=== PATIENT | male | born 1960 | race Caucasian/White ===

== ENCOUNTER 2020-01-06 10:16 | Outpatient (REF) | payer BC, SELFPAY ==
[2020-01-06 11:45] LABS: Prostate Specific Antigen 0.26 ng/mL (<0.05-4.0)
== END 2020-01-06 10:17 | disposition home or self-care (01) ==
LOC: HO.LAB 10:16
PROVIDERS: PCP Internal Medicine; Visit Provider Urology
DX: C61 Malignant neoplasm of prostate (principal)
CPT/HCPCS: 84153

== ENCOUNTER 2020-12-23 10:29 | Outpatient (REF) | payer BC, SELFPAY ==
[2020-12-23 11:51] LABS: PSA,Total (Free>4and<10) 0.27 ng/mL (0.00-4.00)
== END 2020-12-23 10:30 | disposition home or self-care (01) ==
LOC: HO.LAB 10:29
PROVIDERS: PCP Internal Medicine; Visit Provider Urology
DX: Z12.5 Encounter for screening for malignant neoplasm of prostate (principal); C61 Malignant neoplasm of prostate
CPT/HCPCS: 36415; 84153

== ENCOUNTER → 2021-01-01 15:12 | Outpatient (BNVA) | payer BC, SELFPAY | PROVIDERS: Visit Provider Urology ==

== ENCOUNTER 2021-06-30 08:32 | Outpatient (REF) | payer BC, SELFPAY | END 2021-06-30 08:33 | disposition home or self-care (01) | LOC: HO.LAB 08:32 | PROVIDERS: PCP Internal Medicine; Visit Provider Urology | DX: Z12.5 Encounter for screening for malignant neoplasm of prostate (principal); C61 Malignant neoplasm of prostate | CPT/HCPCS: 36415; 84153 ==

== ENCOUNTER → 2021-07-09 15:46 | Outpatient (BNVA) | payer BC, SELFPAY | PROVIDERS: PCP Internal Medicine; Visit Provider Urology | DX: Z13.89 Encounter for screening for other disorder (principal) ==

== ENCOUNTER 2022-05-02 08:55 | Outpatient (REF) | payer BC, SELFPAY ==
[2022-05-02 09:11] LABS: MANUAL DIFF FLAG NO
[2022-05-02 09:25] LABS: Basophils Absolute Auto 0.1 X10*3/uL (0.0-0.2); Basophils Percent Auto 0.9 % (0-2); Eosinophils Absolute Auto 0.3 X10*3/uL (0.0-0.4); Hematocrit 45.4 % (42.0-52.0); Imm Gran Abs Auto 0.04 X10*3/uL (0.00-0.03); Imm Gran Pct Auto 0.5 % (0.0-0.4); Lymphocytes Absolute Auto 1.5 X10*3/uL (1.2-4.9); Lymphocytes Percent Auto 18.8 % (20-40); Mean Corpuscular Hemoglobin 30.3 pg (27.0-33.0); Mean Corpuscular Volume 91.7 fL (80.0-98.0); Mean Platelet Volume 10.5 fL (9.4-12.4); Monocytes Absolute Auto 0.7 X10*3/uL (0.1-1.2); Monocytes Percent Auto 8.5 % (2-11); Neutrophils Absolute Auto 5.2 x10*3/uL (2.0-8.3); Neutrophils Percent Auto 67.3 % (45-73); Platelet Count 276 X10*3/uL (160-400); Red Blood Count 4.95 X10*6/uL (4.60-5.80); Red Cell Distribution Width 12.1 % (11.0-16.0); White Blood Count 7.7 X10*3/uL (4.8-10.8)
[2022-05-02 09:49] LABS: Appearance Urine Clear; Color Urine Yellow; Glucose Urine UA Negative (Negative); Leukocyte Esterase Urine Trace (Negative); Nitrite Urine Negative (Negative); PH 5.5 (5.0-9.0); UMIC TRIGGER UA YES; Urine Blood Negative (Negative); Urine Ketones Negative (Negative); Urine Protein Negative (Neg-Trace)
[2022-05-02 09:56] LABS: Alanine Aminotransferase 15 U/L (0-40); Albumin Level 4.1 g/dL (3.5-5.0); Alkaline Phosphatase 74 U/L (39-117); Anion Gap 12 (12-20); Aspartate Amino Transferase 13 U/L (5-37); Bilirubin Total 0.6 mg/dL (0.0-1.0); Blood Urea Nitrogen 22 mg/dL (9-16); Carbon Dioxide 24 mmol/L (22-29); Chloride 110 mmol/L (96-108); Cholesterol 196 mg/dL; Estimated Glomerular Filt Rate > 60; Glucose Fasting 102 mg/dL (60-99); HDL Cholesterol 54 mg/dL; LDL Cholesterol Calculated 127 mg/dl; Potassium 4.4 mmol/L (3.3-5.1); Sodium 142 mmol/L (135-145); Total Protein 6.6 g/dL (6.5-8.0); Triglycerides 77 mg/dL
[2022-05-02 09:57] LABS: Bacteria Urine None Seen (None Seen); Hyaline Casts Urine 0-2 /LPF (0-2); RBC Urine 0-2 /HPF (0-2); Squamous Epithelial Cell Urine 0-2 /HPF (0-2); WBC Urine 0-5 /HPF (0-5)
== END 2022-05-02 08:56 | disposition home or self-care (01) ==
LOC: HO.LAB 08:55
PROVIDERS: PCP Internal Medicine; Visit Provider Internal Medicine
DX: Z00.00 Encounter for general adult medical examination without abnormal findings (principal)
CPT/HCPCS: 36415; 80053; 80061; 81001; 85025

== ENCOUNTER 2022-05-14 08:01 | Outpatient (REF) | payer BC, SELFPAY ==
--- NOTE | ~2022-05-14 | US_ITS ---
EXAMINATION: US ABDOMEN COMPLETE CLINICAL INFORMATION: Right upper quadrant pain. COMPARISON: Ultrasound abdomen complete 10/16/2014. TECHNIQUE: Real-time imaging of the abdominal viscera. Technically limited study secondary to bowel gas and body habitus. FINDINGS: PANCREAS: The pancreas is obscured by overlying gas. ABDOMINAL AORTA: The abdominal aorta is normal course and caliber. INFERIOR VENA CAVA: IVC is not visualized. LIVER: The liver is normal in size. The liver contour is normal. There is increased liver echogenicity. No focal hepatic lesion. There is no intrahepatic biliary duct dilatation seen. GALLBLADDER: Normal. The gallbladder is physiologically distended without evidence of stones, sludge, polyps, wall thickening or pericholecystic fluid. COMMON BILE DUCT: Normal in caliber measuring 0.4 cm in diameter. RIGHT KIDNEY: There is an anechoic cyst midpole measuring 0.6 x 0.7 x 0.7 cm. There is no hydronephrosis or renal calculi. The kidney measures 10.1 cm in maximum dimension. LEFT KIDNEY: There is an anechoic cyst upper pole measuring 2.5 x 2.1 x 2.2 cm. No hydronephrosis or renal calculi. The kidney measures 9.4 cm in maximum dimension. SPLEEN: Normal. The spleen measures 9.8 cm in maximum dimension. FREE FLUID: None. US/US abdomen complete IMPRESSION: Bilateral renal cysts. Mild hepatic steatosis with no focal lesion seen.
== END 2022-05-14 08:02 | disposition home or self-care (01) ==
LOC: HO.US 08:01
PROVIDERS: PCP Internal Medicine; Visit Provider Internal Medicine
DX: R10.11 Right upper quadrant pain (principal)
CPT/HCPCS: 76700

== ENCOUNTER 2022-06-03 09:07 | Day surgery (SDC) | payer BC, SELFPAY ==
--- NOTE | 2022-06-02 14:38 | HO.ANESPROP2 ---
Documented by User: Yeni Brown NP 06/02/22 14:38 HPI - Anesthesia Eval Consult details Narrative: 62yo M for Colonoscopy [facility] Active Problems Active Problems: All Active Problems (Updated 01/01/21 @ 17:43 by Dieudonne Sandra MD) Malignant neoplasm of prostate (Acute) Past Medical History Medical History Asthma Elevated blood pressure reading Erectile dysfunction following radiation therapy Malignant neoplasm of prostate Prostate cancer Surgical History Surgical History History of surgery Social History Social History Patient Tobacco Use Status: Former Tobacco user Quit Date: 2014 Use of substances other than those prescribed or required for medical reasons: No Are you DNR?: No Advance Directives: No Advance Directives Information Provided: Yes Meds Allergies Allergy/AdvReac Type Severity Reaction Status Date / Time No Known Allergies Allergy Verified 07/09/21 15:46 [No Known Allergies*] Home Medications Medication Instructions Recorded Confirmed Last Taken Type fluticasone 500 mcg-salmeterol 50 1 ea PO BID 07/09/21 Unknown History mcg/dose blistr powdr for inhalation (Advair Diskus) Exam Exam Date and Time: June 02, 2022 1438 Pertinent Lab Results Pertinent Lab Results: Laboratory Tests 05/02/22 05/02/22 09:10 09:10 WBC 7.7 Hgb 15.0 Hct 45.4 Plt Count 276 Sodium 142 Potassium 4.4 Chloride 110 H Carbon Dioxide 24 BUN 22 H Creatinine 0.88 Assessment and Plan Assessment Anesthesia Assessment: Chart Reviewed Documented by User: Rosa Isela Cotto MD 06/03/22 11:17 [facility] Past Medical History Medical History Asthma Elevated blood pressure reading Erectile dysfunction following radiation therapy Malignant neoplasm of prostate Prostate cancer Family History Family history of problems with anesthesia: No Surgical History Surgical History History of surgery History of Problems with Anesthesia: No Social History Social History Patient Tobacco Use Status: Former Tobacco user Quit Date: 2014 Use of substances other than those prescribed or required for medical reasons: No Are you DNR?: No Advance Directives: No Advance Directives Information Provided: Yes Meds Allergies Allergy/AdvReac Type Severity Reaction Status Date / Time No Known Allergies Allergy Verified 07/09/21 15:46 [No Known Allergies*] Home Medications Medication Instructions Recorded Confirmed Last Taken Type fluticasone 500 mcg-salmeterol 50 1 ea PO BID 07/09/21 Unknown History mcg/dose blistr powdr for inhalation (Advair Diskus) Exam Airway Mallampati Class: II TM Dist: >3cm Neck ROM: Full Heart: rr Lungs: cta Assessment and Plan Final Anesthetic Review Family History of Problems with Anesthesia: No History of Problems with Anesthesia: No NPO: Yes ASA Class: II Final Preanesthetic Review: No Changes in Pt Med Stat, Meds/Allgs Chart Reviewed, Consent Obtained/Reviewed and Anes Risks/Benef Reviewed Patient Risk: Low Procedure Risk: Low Anesthetic Plan Anesthetic Plan: MAC: Disposition: Standard PACU
[2022-06-03 10:43] VITALS: BP 171/96; PULSE 96; RESP 20; TEMP 36.7; O2SAT 97; BMI 29.1
[2022-06-03] MEDS: Lactated Ringers 1,000 ML 100 ML IVCONT (10:54)
[2022-06-03 11:53] VITALS: BP 131/85; PULSE 89; RESP 16; TEMP 36.3; O2SAT 98
--- NOTE | 2022-06-03 11:57 | PM.OP ---
Brief Operative Note Date of Service: 06/03/22 Pre-op diagnosis: Screening Post-op diagnosis: other (Polyps) Procedure: Colonoscopy to the cecum with cold snare polypectomy x 3. Surgeon: Terrence Le Anesthesia: MAC Was an Aging Room Hand used for this Procedure?: No Estimated blood loss (mL): 2.0 Pathology: other (A. Polyp at 50cm B. Ascending colon polyp C. Rectal polyp) Condition: stable Disposition: PACU
[2022-06-03 12:09] VITALS: BP 142/97; PULSE 78; RESP 18; TEMP 36.3; O2SAT 97
--- NOTE | 2022-06-03 23:04 | OP_ITS ---
DATE OF SERVICE: 06/03/2022 SURGEON: Terrence Le MD PREOPERATIVE DIAGNOSIS: POSTOPERATIVE DIAGNOSIS: PROCEDURE PERFORMED: Colonoscopy to the cecum and terminal ileum with cold snare polypectomy x 3. ESTIMATED BLOOD LOSS: COMPLICATIONS: ANESTHESIA: Monitored anesthesia care. The patient was placed in the left lateral decubitus position. The digital rectal exam revealed no abnormalities. The Olympus video pediatric colonoscope was entered into the rectum and advanced easily to the cecum. Once in the cecum, I did identify a normal-appearing cecal pouch with appendiceal orifice and a normal-appearing ileocecal valve. The terminal ileum was cannulated and appeared normal. The scope was withdrawn back in the colon. The entire cecum and ileocecal valve appeared normal. The scope was slowly withdrawn assessing all mucosal surfaces carefully. Preparation was excellent. In the proximal ascending colon was an approximately a 5 mm or 6 mm polyp, which was removed by cold snare polypectomy and recovered by suction. The polypectomy site appeared clean, without any sign of residual polyp nor significant bleeding. A 50 cm was an approximately 5 mm or 6 mm flat polyp, which was removed by cold snare polypectomy and recovered by suction. The polypectomy site appeared clean, without any sign of residual polyp nor bleeding. In the proximal rectum was an approximately 5 mm or 6 mm polyp, which was removed by cold snare polypectomy and recovered by suction. The polypectomy site appeared clean, without any sign of residual polyp nor bleeding. I did not visualize any sign of other polyps, colitis, nor angiodysplasia. There was a mild amount of sigmoid diverticulosis. In the rectum, the scope was retroflexed visualizing internal hemorrhoids, but no other pathology. The scope was straightened and withdrawn from the patient. He tolerated the procedure well and was returned to the recovery area in stable condition. ASSISTANTS: SPECIMENS: PREOPERATIVE DIAGNOSES: Colorectal cancer screening and personal history of tubular adenoma of the colon. POSTOPERATIVE DIAGNOSES: Colorectal cancer screening and personal history of tubular adenoma of the colon, colon polyps, diverticulosis, and internal hemorrhage. INDICATION: The patient presents for evaluation of colorectal cancer screening, a personal history of tubular adenoma of the colon, as well as family history of colon cancer. Full consent has been obtained from him for this, including risks of bleeding and perforation. IMPRESSION: 1. Colon polyps. 2. Diverticulosis. 3. Internal hemorrhoids. PLAN: The results of the pathology will be checked. I would recommend a repeat colonoscopy in 5 years for further screening and surveillance. He was advised not to use any aspirin and NSAIDs for 1 week. MD FRANTZ Umanzor/PEEWEE / [id number] MTDD
== END 2022-06-03 12:35 | disposition home or self-care (01) ==
PROVIDERS: PCP Internal Medicine; Visit Provider Internal Medicine
PROC: 0DJD8ZZ Inspection of Lower Intestinal Tract, Via Natural or Artificial Opening Endoscopic (ICD-10-PCS; CPT 45378; principal; 2022-06-03 10:40)
DX: Z12.11 Encounter for screening for malignant neoplasm of colon (principal); Z86.010 Personal history of colon polyps; Z80.0 Family history of malignant neoplasm of digestive organs; D12.8 Benign neoplasm of rectum; K63.5 Polyp of colon; K57.30 Diverticulosis of large intestine without perforation or abscess without bleeding; K64.8 Other hemorrhoids; J45.909 Unspecified asthma, uncomplicated; Z79.51 Long term (current) use of inhaled steroids; Z85.46 Personal history of malignant neoplasm of prostate; Z92.3 Personal history of irradiation; Z87.891 Personal history of nicotine dependence
CPT/HCPCS: 45385; 88305

== ENCOUNTER 2022-08-05 08:43 | Outpatient (REF) | payer BC, SELFPAY ==
[2022-08-05 10:16] LABS: Prostate Specific Antigen 0.29 ng/mL (<0.05-4.0)
== END 2022-08-05 08:44 | disposition home or self-care (01) ==
LOC: HO.LAB 08:43
PROVIDERS: PCP Internal Medicine; Visit Provider Urology
DX: N40.1 Benign prostatic hyperplasia with lower urinary tract symptoms (principal); N13.8 Other obstructive and reflux uropathy; C61 Malignant neoplasm of prostate; Z12.5 Encounter for screening for malignant neoplasm of prostate
CPT/HCPCS: 36415; 84153

== ENCOUNTER → 2022-08-19 15:47 | Outpatient (BNVA) | payer BC, SELFPAY | PROVIDERS: PCP Internal Medicine; Visit Provider Urology ==

== ENCOUNTER 2023-01-06 15:42 | Outpatient (AMB) | payer BC, SELFPAY ==
--- NOTE | 2023-01-06 15:57 | A.OFFVIS_ITS ---
Intake Intake Visit Reasons: 3m meds Intake Note: Patient is present for Telephone Follow up Allergies No Known Allergies [No Known Allergies*] Allergy (Verified 07/09/21 15:46) Medication List - Last Reconciled 01/06/23 by Dieudonne Sandra MD fluticasone propion-salmeterol 500-50 mcg/dose (Advair Diskus) 1 ea PO BID tadalafil 10 mg PO DAILY 90 days vitamin E (dl, acetate) 450 mg PO DAILY 90 days HPI HPI Comments History of Present Illness Details Jose Carlos is a pleasant male. He is a patient of Dr. Deleon. He is seen for the following urologic condition - prostate cancer - erectile dysfunction Telemedicine Evaluation 15 min Consultation [employer] [place] Video attempted Past response to daily 5 mg tadalafil Increase to 10 mg Stable urinary parameters PSA stable Prostate Cancer 2015 external beam radiation Prostate cancer diagnosed by Dr. Marquez Intermediate risk prostate cancer Initial therapy short-term GnRH with external beam radiation Completed with [facility] Radiology PSA 06/01 0.26, 01/01 0.3, 01/02 0.27, 07/04 0.3, 07/05 0.3 Yearly surveillance [facility] Medical History Malignant neoplasm of prostate Asthma Erectile dysfunction following radiation therapy Elevated blood pressure reading Prostate cancer Surgical History History of surgery Social History Patient Tobacco Use Status: Former Tobacco user Quit Date: 2014 Review of Systems Const All systems reviewed & are unremarkable except as noted in HPI and below Reports no additional complaints Resp Reports no additional complaints GI Reports no additional complaints Reports as per HPI Musc Reports no additional complaints Physical Exam Telemedicine evaluation Appropriate responses Regular breathing rate and rhythm HEENT Head: Yes normal to inspection Ears: hearing grossly normal bilaterally Eyes General: appearance normal, both eyes and all related structures Neck Neck: Yes normal visual inspection Chest Chest palpation & inspection: normal inspection of the chest Resp Effort & Inspection: normal respiratory effort and able to speak in complete sentences Assessment & Plan Assessment & Plan (1) Erectile dysfunction: Code(s): N52.9 - Male erectile dysfunction, unspecified Plan Increase daily tadalafil Medications: Changed From tadalafil 5 mg PO DAILY 90 days 90 tabs 0RF sexual activity R39.15 - Urgency of urination To tadalafil 10 mg PO DAILY 90 tabs 0RF sexual activity 90 days R39.15 - Urgency of urination Patient Instructions: Imaging studies, laboratory and physical exam results were discussed and reviewed in detail. No major barriers to patient understanding were identified. An opportunity to ask questions regarding the treatment plan was provided. All questions were answered. The patient expressed understanding and agreement with the above treatment plan. The patient is aware they should contact our office by phone for worsening of their current condition or the appearance of new urologic symptoms. Compliance is encouraged with any medications and followup testing that is ordered. It is a privilege to participate in the urologic care of your patient. If you have any questions or concerns regarding treatment for the above conditions, or other urologic issues, please do not hesitate to contact me. The office telephone contact is [phone]. This note is constructed using voice recognition software. While every effort has been made to ensure accuracy chocolate production machine operator errors may have been included. Yours sincerely, Dr Dieudonne Sandra MD, [facility] - Urology Providers of Expert, Compassionate Care for the Genitourinary System Telehealth Telehealth Location of provider rendering services: practice address Location of patient: address on file Patient Identification confirmed using: Name, : Yes Telehealth method: video Patient verbally consented to treatment: Yes Patient verbally consented to billing insurance company: Yes Patient informed of any privacy concerns related to visit: Yes Coding Level of Care Code Tele Est Pt Level 3 (34804) Diagnoses Erectile dysfunction N52.9
== END 2023-01-06 16:00 | disposition home or self-care (01) ==
LOC: HO.HUSH 15:42
PROVIDERS: PCP Internal Medicine; Visit Provider Urology
DX: N52.9 Male erectile dysfunction, unspecified (principal)
CPT/HCPCS: 99213

== ENCOUNTER → 2023-01-06 15:42 | Outpatient (BNVA) | payer BC, SELFPAY | PROVIDERS: PCP Internal Medicine; Visit Provider Urology ==

== ENCOUNTER 2023-03-23 15:51 | Outpatient (AMB) | payer BC, SELFPAY ==
--- NOTE | 2023-03-23 15:52 | A.OFFVIS_ITS ---
Intake Intake Visit Reasons: 2m follow up Intake Note: Patient is Present for Follow Up Urology Medication: Tadalafil Antibiotic Allergies: None Blood Thinners: None Allergies No Known Allergies [No Known Allergies*] Allergy (Verified 07/09/21 15:46) HPI HPI Comments History of Present Illness Details Jose Carlos is a pleasant male. He is a patient of Dr. Deleon. He is seen for the following urologic condition - prostate cancer - erectile dysfunction Follow-up on tadalafil 10 mg daily Minimal benefit with erectile dysfunction Has had stabilization of bladder Discussed other ED treatments including vacuum pump, injectable therapy, penile prosthetic He will consider Continue 5 mg tadalafil for bladder stability 6 month follow-up PSA Prostate Cancer 2015 external beam radiation Prostate cancer diagnosed by Dr. Marquez Intermediate risk prostate cancer Initial therapy short-term GnRH with external beam radiation Completed with [facility] Radiology PSA 06/01 0.26, 01/01 0.3, 01/02 0.27, 07/04 0.3, 07/05 0.3 Yearly surveillance [facility] Medical History Malignant neoplasm of prostate Asthma Erectile dysfunction following radiation therapy Elevated blood pressure reading Prostate cancer Surgical History History of surgery Social History Patient Tobacco Use Status: Former Tobacco user Quit Date: 2014 Assessment & Plan Assessment & Plan (1) Erectile dysfunction: Code(s): N52.9 - Male erectile dysfunction, unspecified (2) Urinary urgency: Code(s): R39.15 - Urgency of urination Plan Six month Orders: Orders Prostate Specific Antigen 6 Months C61 - Malignant neoplasm of prostate Medications: Changed From tadalafil 10 mg PO DAILY 90 days 90 tabs 0RF sexual activity R39.15 - Urgency of urination To tadalafil 5 mg PO DAILY 90 tabs 1RF Bladder Urge 90 days R39.15 - Urgency of urination Patient Instructions: Imaging studies, laboratory and physical exam results were discussed and reviewed in detail. No major barriers to patient understanding were identified. An opportunity to ask questions regarding the treatment plan was provided. All questions were answered. The patient expressed understanding and agreement with the above treatment plan. The patient is aware they should contact our office by phone for worsening of their current condition or the appearance of new urologic symptoms. Compliance is encouraged with any medications and followup testing that is ordered. It is a privilege to participate in the urologic care of your patient. If you have any questions or concerns regarding treatment for the above conditions, or other urologic issues, please do not hesitate to contact me. The office telephone contact is [phone]. This note is constructed using voice recognition software. While every effort has been made to ensure accuracy drug clerk errors may have been included. Yours sincerely, Dr Dieudonne Sandra MD, [facility] - Urology Providers of Expert, Compassionate Care for the Genitourinary System Coding Level of Care Code Est Pt Level 4 (64892) Diagnoses Erectile dysfunction N52.9 Urinary urgency R39.15
== END 2023-03-23 16:12 | disposition home or self-care (01) ==
PROVIDERS: PCP Internal Medicine; Visit Provider Urology
DX: N52.9 Male erectile dysfunction, unspecified (principal); R39.15 Urgency of urination
CPT/HCPCS: 99213

== ENCOUNTER → 2023-03-23 15:51 | Outpatient (BNVA) | payer BC, SELFPAY | PROVIDERS: PCP Internal Medicine; Visit Provider Urology ==

== ENCOUNTER 2024-02-17 11:38 | Emergency (ER) | payer BC, SELFPAY ==
--- NOTE | ~2024-02-17 | CT_ITS ---
EXAMINATION: CT CHEST, ABDOMEN AND PELVIS WITHOUT CONTRAST CLINICAL INFORMATION: Bilateral rib pain. Upper back pain. Abdominal pain. Constipation. Fall from ladder. COMPARISON: Most recent abdominal ultrasound dated 05/14/2022. TECHNIQUE: Contiguous axial thin section helical images of the chest, abdomen and pelvis were performed without IV contrast. The data set was reformatted in the coronal and sagittal planes and reviewed on an independent workstation. This CT examination was performed using dose optimization techniques as appropriate, variously including the following: *Automated exposure control *Adjustment of mA and/or kV according to patient size (this includes techniques or standardized protocols for targeted exams where dose is matched to indication/reason for exam; i.e. extremities or head) *Use of iterative reconstruction technique DLP: 2048 mGy-cm. FINDINGS: LUNGS: Bibasilar dependent consolidations, left greater than right. Findings could represent atelectasis versus pneumonia. No pulmonary nodule or mass. The central airways are patent. PLEURA: Trace left-sided pleural effusion. No pneumothorax. MEDIASTINUM: No cardiomegaly. No significant pericardial effusion. No thoracic aortic dilatation. No significant mediastinal or hilar lymphadenopathy. CORONARY ARTERY CALCIFICATION: None present. CHEST WALL/AXILLA: No lymphadenopathy. THYROID: Right thyroid nodule measuring up to 2.7 cm. Nonemergent follow-up thyroid ultrasound is recommended. LIVER, GALLBLADDER, AND BILIARY TREE: Normal size, shape, and attenuation. No focal hepatic lesion. No intra or extrahepatic biliary ductal dilatation. The gallbladder is unremarkable with no evidence of radiopaque gallstones, gallbladder wall thickening, or obvious pericholecystic inflammatory changes. PANCREAS: Unremarkable. SPLEEN: Unremarkable. ADRENAL GLANDS: Unremarkable. KIDNEYS AND URETERS: Normal size, shape, and attenuation. No hydronephrosis, hydroureter, or calculi. No perinephric stranding. BLADDER: Partially distended and unremarkable. A portion of the urinary bladder is herniated into the right inguinal hernia without significant stranding or dilatation. GASTROINTESTINAL TRACT: No bowel wall thickening or inflammatory change. No small or large bowel obstruction. The appendix is unremarkable. PERITONEAL CAVITY: No intra-abdominal free air, free fluid, mass, or organized fluid collection. ABDOMINAL WALL: Right inguinal hernia containing fat and a portion of the urinary bladder. No associated inflammatory or ischemic change. LYMPH NODES: No significant lymphadenopathy. VASCULAR: No abdominal aortic dilatation. Scattered atherosclerotic calcifications. The IVC is unremarkable. PELVIC VISCERA: The prostate and seminal vesicles are unremarkable. OSSEOUS STRUCTURES: Nondisplaced fractures through the anterolateral aspect of the right 6th through 9th ribs. Minimally displaced fractures through the anterolateral aspect of the left 6th and 7th ribs. Displaced fractures of the posterior aspect of the left 8th, 9th, 10th and 11th ribs with minimally displaced anterolateral fractures of the left 8th and 9th ribs. CT/CT abdomen pelvis wo IV con IMPRESSION: 1. Bibasilar dependent consolidations, left greater than right. Findings could represent atelectasis versus pneumonia. Trace left-sided pleural effusion. No pneumothorax. 2. Multiple bilateral rib fractures, most prominent within the left 8th through 11th ribs. 3. No intra-abdominal mass, lymphadenopathy, or ascites. 4. Right thyroid nodule measuring up to 2.7 cm. Nonemergent follow-up thyroid ultrasound is recommended. 5. Right inguinal hernia containing fat and a portion of the urinary bladder. No associated inflammatory or ischemic change. Electronically signed by: Wilfrido Glasgow MD 02/17/2024 03:42 PM [facility]
--- NOTE | ~2024-02-17 | XR_ITS ---
EXAMINATION: XR LUMBOSACRAL SPINE CLINICAL INFORMATION: b/l low back pain s/p fall COMPARISON: No prior. TECHNIQUE: Three views of the lumbosacral spine. FINDINGS: Normal bone mineralization. No fracture, compression deformity, or evidence of traumatic subluxation. No suspicious bone lesion. No scoliosis. Normal lordosis. Alignment is anatomic without subluxation. Severe disc degenerative change L5-S1 with associated facet degeneration. Mild changes throughout the remainder of the lumbar spine with sparing of L2-3. No discrete soft tissue abnormalities. Oval radiodensity overlying the left transverse process of L3 is of uncertain etiology but not present on the lateral projection. This may be artifact. Fiducial markers noted in the prostate gland. XR/XR lumbar spine 2-3V IMPRESSION: 1. No acute findings lumbar spine. 2. Mild degenerative spondylosis most significant L5-S1. Electronically signed by: Brown House MD 02/17/2024 02:03 PM [facility]
--- NOTE | ~2024-02-17 | XR_ITS ---
EXAMINATION: XR SACRUM AND COCCYX CLINICAL INFORMATION: fall onto tail bone COMPARISON: None available. TECHNIQUE: 2 views of the sacrum and 2 views of the coccyx were obtained. FINDINGS: The coccyx and sacrum are intact, as are the SI joints. Imaged hip joints appear normal. Degenerative disc changes L5-S1. Fiducial markers in the prostate. Soft tissues otherwise appear normal. XR/XR sacrum coccyx min 2V IMPRESSION: No acute sacrum or coccyx findings. Electronically signed by: Brown House MD 02/17/2024 02:06 PM [facility]
--- NOTE | ~2024-02-17 | CT_ITS ---
EXAMINATION: CT HEAD WITHOUT CONTRAST CLINICAL INFORMATION: fall w/ posterior head strike COMPARISON: None available. TECHNIQUE: Contiguous axial imaging was performed from the skull base to vertex without intravenous administration of contrast. This CT examination was performed using dose optimization techniques as appropriate, variously including the following: *Automated exposure control *Adjustment of mA and/or kV according to patient size (this includes techniques or standardized protocols for targeted exams where dose is matched to indication/reason for exam; i.e. extremities or head) *Use of iterative reconstruction technique DLP: 852 mGy-cm FINDINGS: Bony calvarium is intact. Skull base is intact. Traumatic deformity in the nasal bones, likely old. 50 mm low density nodule beneath the skin, right forehead. No gross soft tissue scalp contusion. No acute intracranial hemorrhage, mass effect, midline shift, hydrocephalus or herniation. Lees-white matter differentiation is normal. Posterior cranial fossa contents demonstrated no acute intracranial hemorrhage or mass effect. Sellar/suprasellar region demonstrated no gross masses. Craniocervical junction is intact and normal. Polypoid mucosal thickening, maxillary sinuses. Retention cysts versus polyp in the right nasal cavity just lateral to the middle turbinate. No air-fluid levels in the included paranasal sinuses. Tympanic cavities and mastoid air cells are aerated. Calcified plaques in the cavernous and supraclinoid segments both ICA. CT/CT head/brain wo IV con IMPRESSION: No acute fracture, bony calvarium. No acute intracranial hemorrhage. Polypoid paranasal sinus disease and retention cysts versus polyp, right nasal cavity. Recommend direct inspection. Old traumatic deformity, nasal bones. Electronically signed by: Andres Maki MD 02/17/2024 01:59 PM EST
--- NOTE | ~2024-02-17 | CT_ITS ---
EXAMINATION: CT CERVICAL SPINE WITHOUT CONTRAST CLINICAL INFORMATION: Fall from ladder. COMPARISON: None available. TECHNIQUE: Contiguous axial CT images of the cervical spine were obtained without contrast. Sagittal and coronal reformats were provided and reviewed. This CT examination was performed using dose optimization techniques as appropriate, variously including the following: *Automated exposure control *Adjustment of mA and/or kV according to patient size (this includes techniques or standardized protocols for targeted exams where dose is matched to indication/reason for exam; i.e. extremities or head) *Use of iterative reconstruction technique DLP: 2048 mGy-cm FINDINGS: Normal vertebral body alignment. No acute fracture or subluxation. No loss of vertebral body height. Loss of intervertebral disc height with degenerative endplate changes and osteophytes at C3 through C7. Mild multilevel bilateral facet arthropathy, most prominent at C7-T1. No concerning lytic or blastic osseous lesion. No abnormal soft tissue mass or fluid collection. Heterogeneous right thyroid nodule measuring up to 2.6 cm in greatest dimension. Dedicated ultrasound could help further evaluate. The lung apices are clear. Mild multilevel bilateral neural foraminal stenosis. CT/CT cervical spine wo IV con IMPRESSION: 1. No acute fracture or subluxation. 2. Multilevel degenerative disc disease and bilateral facet arthropathy with mild multilevel bilateral neural foraminal stenosis. 3. Heterogeneous right thyroid nodule measuring up to 2.6 cm. Nonemergent dedicated thyroid ultrasound could help further evaluate. Fleischner guidelines were followed. Electronically signed by: Wilfrido Glasgow MD 02/17/2024 03:33 PM [facility]
[2024-02-17 11:45] VITALS: BP 154/99; PULSE 124; RESP 18; TEMP 36.4; O2SAT 94; BMI 27.5
--- NOTE | 2024-02-17 11:45 | ED.BACK ---
HPI - Back Pain/Injury General Chief Complaint: Fall Stated Complaint: Fall 02/12 - back pain Time Seen by Provider: 02/17/24 12:21 Source: patient, RN notes reviewed and old records reviewed Mode of arrival: ambulatory History of Present Illness ED Provider: Eveline Negron PA-C HPI Narrative: 63-year-old male with a past medical history of malignant neoplasm of prostate, asthma, presenting to the ED complaining mid/low back pain s/p mechanical fall off ladder on 02/13/2024. States was coming down off ladder, was on 2nd to last step & avoid stepping on his cat tried to step on ground however himself/ladder fell backwards onto floor, admits to head strike without LOC and landed directly on back. Denies anticoagulation use. Reports constipation without BM since fall which patient has suspect secondary to pain. Has been taking ibuprofen at home without relief. Reports SOB secondary to back pain. Denies urinary incontinence/retention, dysuria/hematuria, CP, radiating back pain, numbness, tingling, weakness Related Data Home Medications ?Medication ?Instructions ?Recorded ?Confirmed fluticasone 500 mcg-salmeterol 50 1 ea PO BID 07/09/21 01/06/23 mcg/dose blistr powdr for inhalation (Advair Diskus) Previous Rx's ?Medication ?Instructions ?Recorded vitamin E (dl, acetate) 450 mg 450 mg PO DAILY 90 days #90 caps 02/26/23 (1,000 unit) capsule tadalafil 5 mg tablet 5 mg PO DAILY Bladder Urge 90 days 03/23/23 #90 tabs Allergies Allergy/AdvReac Type Severity Reaction Status Date / Time No Known Allergies Allergy Verified 02/17/24 11:49 [No Known Allergies*] Review of Systems Review of Systems: Yes all other systems are reviewed and are negative Constitutional: Constitutional: Reports as per HPI Neurologic: Denies Abnormal speech present and Denies Sensory deficit (Neuro) [facility] Past Medical History Attestation statement: The following information was validated with the patient. Source: old records reviewed Medical History Malignant neoplasm of prostate Asthma Erectile dysfunction following radiation therapy Elevated blood pressure reading Prostate cancer Surgical History History of surgery Social History Social History Alcohol intake: current Alcohol intake frequency: 0-2 drinks per day Patient Tobacco Use Status: Former Tobacco user Smoked in Last 30 Days: No Use of substances other than those prescribed or required for medical reasons: No Advance Directives: No Advance Directives Information Provided: Yes Do you have a plan to hurt others: No Plan Physical Exam Vital Signs: Vital Signs: Last Vital Signs Temp 98.4 F 02/17/24 14:47 Pulse 94 02/17/24 14:47 Resp 19 02/17/24 14:47 BP 137/81 02/17/24 14:47 Pulse Ox 92 02/17/24 14:47 O2 Del Method Room Air 02/17/24 14:47 BMI result Body Mass Index 27.5 Const: Other: Appears in pain General: cooperative, healthy appearing and no acute distress Orientation/consciousness: patient oriented x3 Limitations: no limitations HEENT: Head: Yes normal to inspection and Yes atraumatic Ears: hearing grossly normal bilaterally General nose exam: Normal external nose present Face and sinus: Yes normal facial exam Eyes: General: appearance normal, both eyes and all related structures Pupils: Equal, round and reactive pupils present EOM: EOMs intact bilaterally Neck: Neck: Yes normal visual inspection and Yes no meningeal signs Chest: Other: Bilateral lower rib posterior lateral reproducible tenderness. No ecchymosis/erythema or flail chest. No crepitus Resp: Effort & Inspection: normal respiratory effort and no respiratory distress Auscultation: clear to auscultation bilaterally Cardio: Rate: regular rate Heart sounds: S1 normal heart sound present and S2 normal heart sound present GI: Inspection: Yes normal to inspection Palpation (GI): Soft to palpation, Tenderness to palpation present (GI) (Diffusely), no guarding and not rigid : General: Yes no CVA tenderness Back/Spine/Pelvis: Other: No midline cervical/thoracic/lumbar spinous tenderness/step-off or deformity Back: no CVA tenderness Skin: Rashes: no rashes Wounds: no wounds Neuro: Other: Strength intact throughout. No saddle anesthesia. Sensation intact to light touch. Neurovascular intact distally General: patient oriented x3, tone normal, moves all extremities, no meningeal signs, no focal motor deficits and CN's II-XI intact bilaterally Cranial nerves: Yes CN's II-XII intact bilaterally and Yes Equal, round and reactive pupils present Cognition (Neuro): normal cognition Speech: No Abnormal speech present Gait exam (Neuro): Ataxic gait present Motor exam (neuro): 5/5 motor strength present throughout Sensory Exam: No Sensory deficit (Neuro) Extrem: General: Yes normal to inspection Course Course Course Narrative: This is a Rapid Medical Examination (RME) performed by Vivienne Tijerina PA-C in triage. Full HPI, ROS, assessment and treatment plan per primary provider in the Main ED. 63 yo male here for eval of b/l lower back pain since fall on 02/13/24. states he stepped off of the 2nd step of a ladder in order to avoid stepping on his cat which caused both him and the ladder to fall backwards. reports landing directly onto his lower back. admits to posterior head strike. no LOC. Not on AC. no urinary retention. has not had a BM since which is unusual for him however also reports he has had no appetitie. denies saddle anestehsias, numbness/tingling/weakness to LEs. denies neck pain. taking motrin without relief. + tachy to 120's, no chest pain. sensation intact. ambulating w/ steady gait. Plan: labs, imaging, ekg, further eval in main ED needed. 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 -1414--labs reassuring. BUN chronically elevated XR lumbar spine 2-3V IMPRESSION: 1. No acute findings lumbar spine. 2. Mild degenerative spondylosis most significant L5-S1. XR sacrum coccyx min 2V IMPRESSION: No acute sacrum or coccyx findings. CT head/brain wo IV con IMPRESSION: No acute fracture, bony calvarium. No acute intracranial hemorrhage. Polypoid paranasal sinus disease and retention cysts versus polyp, right nasal cavity. Recommend direct inspection. Old traumatic deformity, nasal bones. 1553--CT cervical spine wo IV con IMPRESSION: 1. No acute fracture or subluxation. 2. Multilevel degenerative disc disease and bilateral facet arthropathy with mild multilevel bilateral neural foraminal stenosis. 3. Heterogeneous right thyroid nodule measuring up to 2.6 cm. Nonemergent dedicated thyroid ultrasound could help further evaluate. Fleischner guidelines were followed. CT chest wo IV con/CT abdomen pelvis wo IV con IMPRESSION: 1. Bibasilar dependent consolidations, left greater than right. Findings could represent atelectasis versus pneumonia. Trace left-sided pleural effusion. No pneumothorax. 2. Multiple bilateral rib fractures, most prominent within the left 8th through 11th ribs. 3. No intra-abdominal mass, lymphadenopathy, or ascites. 4. Right thyroid nodule measuring up to 2.7 cm. Nonemergent follow-up thyroid ultrasound is recommended. 5. Right inguinal hernia containing fat and a portion of the urinary bladder. No associated inflammatory or ischemic change. > 1601--spoke with [facility] trauma transfer line. -1705--spoke with trauma, Dr. Mendoza at [facility], accepted transfer, ED to ED with trauma consult Medications Administered Discontinued Medications Generic Name Dose Route Start Last Admin Trade Name Freq PRN Reason Stop Dose Admin Cyclobenzaprine HCl 10 mg 02/17/24 12:31 02/17/24 13:13 Cyclobenzaprine Hcl 10 Mg Tablet PO 02/17/24 12:32 10 mg ONCE ONE Administration Sodium Chloride 500 mls @ 999 mls/hr 02/17/24 12:45 02/17/24 14:05 Ns IV 02/17/24 13:15 Infused .Q31M SOCRATES Infusion Morphine Sulfate 2 mg 02/17/24 12:30 02/17/24 13:12 Morphine Sulfate 2 Mg/Ml Cartridge IVPUSH 02/17/24 12:31 2 mg ONCE ONE Administration Protocol Medical Decision Making Medical Decision Making MDM Narrative: 63-year-old male with a past medical history of malignant neoplasm of prostate, asthma, presenting to the ED complaining mid/low back pain s/p mechanical fall off ladder on 02/13/2024 and constipation without BM since incident. On exam tachycardic likely from pain, no focal neuro deficits, no midline spinous tenderness throughout. Reproducible bilateral posterior lateral rib tenderness, abdomen soft with diffuse tenderness, no rebound or guarding. No saddle anesthesia. Concern for fractures vs MSK pain/strain vs intrathoracic/intra-abdominal injury. Rule out concussion vs ICH although lower suspicion. Lower concern for cauda equina/cord compression or epidural abscess. Rule out constipation vs SBO Plan: Labs, UA, x-rays, CTs, pain control, re-evaluate Low suspicion for severe sepsis Please refer to course for remaining clinical decision making, interpretation of labs/imaging results, and discussions with consultants and/or family members. Differential Diagnosis Differential Diagnoses: The differential diagnosis associated with the presentation includes As above Admission/Observation Consideration of admission/observation: Escalation of care including admission/observation considered Lab Data MDM Lab Attestation statement: I reviewed the patient's lab results. 02/17/24 13:03 02/17/24 13:03 Labs: Lab Results 02/17/24 Range/Units 13:03 WBC 10.0 (4.8-10.8) X10*3/uL RBC 5.13 (4.60-5.80) X10*6/uL Hgb 15.9 (14.0-18.0) g/dl Hct 46.7 (42.0-52.0) % MCV 91.0 (80.0-98.0) fL MCH 31.0 (27.0-33.0) pg MCHC 34.0 (31.0-36.0) g/dl RDW 11.9 (11.0-16.0) % Plt Count 316 (160-400) X10*3/uL MPV 10.6 (9.4-12.4) fL Immature Gran % (Auto) 0.5 H (0.0-0.4) % Neut % (Auto) 76.4 H (45-73) % Lymph % (Auto) 11.0 L (20-40) % Highland % (Auto) 10.0 (2-11) % Eos % (Auto) 1.3 (0-4) % Baso % (Auto) 0.8 (0-2) % Lymph # (Auto) 1.1 L (1.2-4.9) X10*3/uL Highland # (Auto) 1.0 (0.1-1.2) X10*3/uL Eos # (Auto) 0.1 (0.0-0.4) X10*3/uL Baso # (Auto) 0.1 (0.0-0.2) X10*3/uL Abs Immat Gran (auto) 0.05 H (0.00-0.03) X10*3/uL Absolute Neuts (auto) 7.6 (2.0-8.3) x10*3/uL Absolute Nucleated RBC 0.000 (0.0-0.012) X10*3/uL Nucleated RBC % (auto) 0.0 (0.0-0.2) /100WBC PT 11.9 (10.9-12.4) SEC INR 1.0 (0.9-1.1) Sodium 139 (135-145) mmol/L Potassium 4.3 (3.3-5.1) mmol/L Chloride 105 (96-108) mmol/L Carbon Dioxide 26 (22-29) mmol/L Anion Gap 12 (12-20) BUN 21 H (9-16) mg/dL Creatinine 0.92 (0.5-1.4) mg/dL Estim Creat Clear Calc 90.2 Estimated GFR > 60 Random Glucose 108 (60-115) mg/dL Calcium 9.4 (8.4-10.2) mg/dL Magnesium 2.3 (1.6-2.6) mg/dL Total Bilirubin 0.7 (0.0-1.0) mg/dL AST 22 (5-37) U/L ALT 21 (0-40) U/L Alkaline Phosphatase 86 (39-117) U/L Total Protein 7.6 (6.5-8.0) g/dL Albumin 4.1 (3.5-5.0) g/dL Lipase 24 (8-78) U/L Independent Interpretation I performed an independent interpretation of an: Plain X-Ray and CT Scan Radiology Impression Discussion of test interpretation with radiology: I have reviewed the radiologist's reading. External Record Review External record reviewed: Inpatient record, Office record, Outpatient record, Prior outpatient labs, Prior outpatient radiology, Primary care record and Outside ED record Tests considered The following testing was considered but not selected: As above Prescription Management I considered prescription management with: Pain Medication Chronic Conditions Patient?s care impacted by: Other Social Determinants Patient?s care significantly limited by Social Determinants of Health including: Other Social Determinant of Health Critical Care Time Critical Care Time Critical Care Time: Yes Total Critical Care Time: 40 Attestation: I have personally provided critical care time exclusive of time spent on separately billable procedures. Time includes review of lab data, radiology results, discussion with consultants, and monitoring for potential decompensation. Intervention performed as documented. Discharge Plan Discharge Clinical Impression: Multiple fractures of rib involving four or more ribs Patient Disposition: Still a Patient Prescriptions: No Action vitamin E (dl, acetate) 450 mg (1,000 unit) capsule 450 mg PO DAILY 90 Days Qty: 90 1RF fluticasone propion-salmeterol [Advair Diskus] 500-50 mcg/dose blister with device 1 ea PO BID tadalafil 5 mg tablet 5 mg PO DAILY 90 Days Qty: 90 1RF Print Language: Emirati
--- NOTE | 2024-02-17 11:47 | ECG_ITS ---
Test Reason : TACHY Blood Pressure : / mmHG Vent. Rate : 108 BPM Atrial Rate : 108 BPM P-R Int : 138 ms QRS Dur : 092 ms QT Int : 350 ms P-R-T Axes : 042 026 045 degrees QTc Int : 469 ms Sinus tachycardia Otherwise normal ECG When compared with ECG of 26-APR-2001 08:46, Nonspecific T wave abnormality now evident in Inferior leads Referred By: Sury Tijerina Electronically Signed By:Demar Ibarra
[2024-02-17 13:10] LABS: MANUAL DIFF FLAG NO
[2024-02-17] MEDS: 0.9 % Sodium Chloride 500 ML 999 ML IV (13:12)
[2024-02-17] MEDS: Morphine Sulfate 2 MG/ML CARTRIDGE IVPUSH ×2 (13:12→18:24)
[2024-02-17] MEDS: Cyclobenzaprine HCl 10 MG TABLET PO (13:13)
[2024-02-17 13:15] VITALS: BP 137/83; PULSE 93; RESP 20; O2SAT 94
--- NOTE | 2024-02-17 13:15 | PC.NURSE ---
pt is alert and oriented, skin appropriate for ethnicity, respirations even and unlabored, pt reports that on 02/12 was hanging lights inside his house and was on the second step of a ladder, his cat was going under his feet and he did not want to step at the cat tripped landing on his back since then having all back pain, and has not had a bowel movement since the fall, is urinating fine, no blood in the urine, no head strike, also reports poor appetite since the fall, vs stable
[2024-02-17 13:16] LABS: Basophils Absolute Auto 0.1 X10*3/uL (0.0-0.2); Basophils Percent Auto 0.8 % (0-2); Eosinophils Absolute Auto 0.1 X10*3/uL (0.0-0.4); Eosinophils Percent Auto 1.3 % (0-4); Hematocrit 46.7 % (42.0-52.0); Hemoglobin 15.9 g/dl (14.0-18.0); Imm Gran Abs Auto 0.05 X10*3/uL (0.00-0.03); Imm Gran Pct Auto 0.5 % (0.0-0.4); Lymphocytes Absolute Auto 1.1 X10*3/uL (1.2-4.9); Mean Platelet Volume 10.6 fL (9.4-12.4); Neutrophils Absolute Auto 7.6 x10*3/uL (2.0-8.3); Neutrophils Percent Auto 76.4 % (45-73); Platelet Count 316 X10*3/uL (160-400); Red Blood Count 5.13 X10*6/uL (4.60-5.80); Red Cell Distribution Width 11.9 % (11.0-16.0)
[2024-02-17 13:25] LABS: Prothrombin Time 11.9 SEC (10.9-12.4)
[2024-02-17 13:27] LABS: Alanine Aminotransferase 21 U/L (0-40); Albumin Level 4.1 g/dL (3.5-5.0); Alkaline Phosphatase 86 U/L (39-117); Anion Gap 12 (12-20); Aspartate Amino Transferase 22 U/L (5-37); Bilirubin Total 0.7 mg/dL (0.0-1.0); Blood Urea Nitrogen 21 mg/dL (9-16); Calcium 9.4 mg/dL (8.4-10.2); Carbon Dioxide 26 mmol/L (22-29); Chloride 105 mmol/L (96-108); Creatinine Clr Calc Pharmacy 90.2; Estimated Glomerular Filt Rate > 60; Glucose Random 108 mg/dL (60-115); Lipase 24 U/L (8-78); Magnesium 2.3 mg/dL (1.6-2.6); Potassium 4.3 mmol/L (3.3-5.1); Sodium 139 mmol/L (135-145); Total Protein 7.6 g/dL (6.5-8.0)
[2024-02-17 14:47] VITALS: BP 137/81; PULSE 94; RESP 19; TEMP 36.9; O2SAT 92
--- NOTE | 2024-02-17 15:26 | PC.NURSE ---
pt reports feeling better, no pain while laying still but once moves the pain jumps to 5/10
--- NOTE | 2024-02-17 18:00 | PC.NURSE ---
report given to marco antonio noel at [facility]
[2024-02-17 18:20] VITALS: BP 139/85; PULSE 86; RESP 16; TEMP 37; O2SAT 93
--- NOTE | 2024-02-17 18:20 | PC.NURSE ---
pt reports pain is getting worse again when moves pain at 10/10
[2024-02-17 19:42] VITALS: BP 139/85; PULSE 86; RESP 16; TEMP 37; O2SAT 93
--- OUTSIDE RECORDS SUMMARY | 2024-02-23 02:01 | XMS_ITS | Patient Health Record ---
Author Organization [facility] Address [address] [place] [address] Care Team Providers Care [employer] Process Worker Name Role Phone Timothy Deleon MD Primary Care Provider Marivel Crowe Unavailable [phone] Allergies No Known Allergies Reason For Referral No Information Medications Medication SIG (Take, Route, Frequency, Duration) Notes Start Date End Date Status Advair Diskus 500-50 MCG/DOSE 1 puff Inhalation Twice a day Active Social History Tobacco Use: Social History Observation Description Date Details (start date - stop date) Former Smoker NA - NA Tobacco Use/Smoking Question Answer Notes Are you a: former smoker Tobacco use other than smoking: Question Answer Notes Are you an other tobacco user? No Problems Problem Type SNOMED Code ICD Code Onset Dates Problem Status W/U Status Risk Notes Problem [id number] Plantar wart (B07.0) Active confirmed Plan Of Treatment No Information Insurance Providers Payer Name Payer Address Payer Phone Subscriber Number Group Number Insured Name Patient Relationship to Insured Coverage Start Date Coverage End Date [employer] [address] [place] [address] [id number] Jose Carlos Catherine Self - patient is the insured Medical (General) History Medical History History ICD Code asthma Surgical History Surgery Date(Month/Year)
--- OUTSIDE RECORDS SUMMARY | 2024-02-23 02:01 | XMS_ITS | Continuity of Care Document ---
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 Name Role Phone Timothy Deleon MD Primary Care Physician [place] [facility] [place]): [place] - 02/19/[address] [address] Encounter Diagnosis Rib fractures(Final) - 02/18/24 Fall(Final) - 02/18/24 Dyspnea(Final) - 02/18/24 Discharge Disposition: A-D/C Home Attending Physician: Estrella Mendoza MD Admitting Physician: Estrella Mendoza MD Referring Physician: Not on Staff, Referring MD Encounter Type: Disch IP Allergies, Adverse Reactions, Alerts No Known Medication Allergies Medications gabapentin 300 mg oral capsule 300 mg, Capsule, By Mouth, 02/19/24 9:00:00 AM EST Start Date: 02/19/24 Stop Date: 02/19/24 Status: Completed Repeat number: 1 gabapentin 300 mg oral capsule 300 mg, By Mouth, 3 times a day, # 42 capsule, Refills 0, Tot. Refills 0, Maintenance, 02/19/24 11:05:00 AM EST, Route to Pharmacy Electronically, [facility], Partial fill upon patient request if the prescription is for a schedule II opioid drug., 186, cm, 02/19/24 11:04:00 EST, Height, 97.72, kg, 02/18/24 14:21:00 EST, Dry Weight Start Date: 02/19/24 Stop Date: 03/04/24 Status: Ordered Quantity: 42.0 Unit: capsule Repeat number: 1 ibuprofen 600 mg oral tablet 600 mg, Tablet, By Mouth, 02/19/24 9:00:00 AM EST Start Date: 02/19/24 Stop Date: 02/19/24 Status: Completed Repeat number: 1 ibuprofen 600 mg oral tablet 600 mg, By Mouth, 3 times a day, for 14 days, # 42 tablet, Refills 0, Tot. Refills 0, Acute 03/04/24 11:05:00 AM EST, 02/19/24 11:05:00 AM EST, Route to Pharmacy Electronically, [facility], Partial fill upon patient request if the prescription is for a schedule II opioid drug., 186, cm, 02/19/24 11:04:00 EST, Height, 97.72, kg, 02/18/24 14:21:00 EST, Dry Weight Start Date: 02/19/24 Stop Date: 03/04/24 Status: Ordered Quantity: 42.0 Unit: tablet Repeat number: 1 oxyCODONE 5 mg oral tablet 5 mg, By Mouth, Every 4 hours, PRN, for 3 days, # 18 tablet, Refills 0, Tot. Refills 0, Acute 02/22/24 11:05:00 AM EST, Pain , Moderate, 02/19/24 11:05:00 AM EST, Route to Pharmacy Electronically, [facility], Partial fill upon patient request if the prescription is for a schedule II opioid drug., 186, cm, 02/19/24 11:04:00 EST, Height, 97.72, kg, 02/18/24 14:21:00 EST, Dry Weight Start Date: 02/19/24 Stop Date: 02/22/24 Status: Ordered Quantity: 18.0 Unit: tablet Repeat number: 1 Tylenol 325 mg oral tablet 975 mg, Tablet, By Mouth, 02/19/24 10:00:00 AM EST Start Date: 02/19/24 Stop Date: 02/19/24 Status: Completed Repeat number: 1 Tylenol 325 mg oral tablet 975 mg, By Mouth, Every 6 hours, for 14 days, # 168 tablet, Refills 0, Tot. Refills 0, Acute 03/04/24 11:05:00 AM EST, 02/19/24 11:05:00 AM EST, Route to Pharmacy Electronically, [facility], Partial fill upon patient request if the prescription is for a schedule II opioid drug., 186, cm, 02/19/24 11:04:00 EST, Height, 97.72, kg, 02/18/24 14:21:00 EST, Dry Weight Start Date: 02/19/24 Stop Date: 03/04/24 Status: Ordered Quantity: 168.0 Unit: tablet Repeat number: 1 Zeynep Inhub 500 mcg-50 mcg inhalation powder 1 inhalation, Inhalation, 2 times a day, rinse mouth and throat after use, 0 Refills, Maintenance, 02/18/24 1:34:00 PM EST, Powder, Partial fill upon patient request if the prescription is for a schedule II opioid drug. Start Date: 02/18/24 Status: Ordered Repeat number: 1 Results Radiology Reports * Exam Date Time Procedure Performing Provider Status 02/19/24 7:05 AM Chest 2 Views Frontal and Lat Jany Proctor; Auth (Verified) Notes: (Chest 2 Views Frontal and Lat) Reason For Exam: Other:;Other: RESULT: Chest 2 Views Frontal and Lat Chest 2 Views Frontal and Lat Reason: Other:; Clinical Question(s): Other:; Special Instructions: Bilateral effusions COMPARISON: 02/18/2024 FINDINGS: LINES AND TUBES: None. LUNGS AND PLEURA: Unchanged small pleural effusions and bibasilar atelectasis No pneumothorax. HEART, MEDIASTINUM AND LIMA: Heart is normal in size. Normal mediastinal and hilar contour. BONES AND SOFT TISSUES: No acute abnormality. IMPRESSION: Unchanged small pleural effusions and bibasilar atelectasis WSN: [id number] Ordering Physician: Cali Egan Dictated By: Tony Melton MD Dictated Date/Time: 02/19/24 1:24 pm Reviewed By: Tony Melton MD Signed By: Tony Melton MD Signed Date/Time: 02/19/24 1:24 pm Transcribed By: CAROLINA Transcribed Date/Time: 02/19/24 1:23 pm * Exam Date Time Procedure Performing Provider Status 02/18/24 8:36 AM Chest 2 Views Frontal and Lat Caprice Aguilera; Auth (Verified) Notes: (Chest 2 Views Frontal and Lat) Reason For Exam: Trauma;Other: RESULT: Chest 2 Views Frontal and Lat Examination: Chest performed on 02/18/2024. History: Trauma Findings: Frontal and lateral views of the chest are submitted without comparison. The cardiac and mediastinal silhouettes are within normal limits. The lungs are clear. Trace pleural effusions are present. The osseous and soft tissue structures are unremarkable. Impression: Trace pleural effusions. WSN: [id number] Ordering Physician: Cecil Lou Dictated By: Mary Schilling MD Dictated Date/Time: 02/18/24 9:16 am Reviewed By: Mary Schilling MD Signed By: Mary Schilling MD Signed Date/Time: 02/18/24 9:16 am Transcribed By: CAROLINA Transcribed Date/Time: 02/18/24 9:15 am Vital Signs Most recent to oldest [Reference Range]: 1 2 3 4 Height 186 cm (02/19/24 11:04 AM) 186 cm (02/19/24 7:39 AM) 186 cm (02/19/24 4:08 AM) Weight 97.72 kg (02/18/24 2:21 PM) Oxygen Saturation [94-100 %] 94 % (02/19/24 11:04 AM) 93 % *L* (02/19/24 7:39 AM) 96 % (02/19/24 4:08 AM) Pulse Rate [55-90 bpm] 92 bpm *H* (02/19/24 11:04 AM) 86 bpm (02/19/24 7:39 AM) 75 bpm (02/19/24 4:08 AM) Body Mass Index [18.5-24.99 kg/m2] 28.25 kg/m2 *H* (02/18/24 2:21 PM) Blood Pressure [90-138/55-84 mm Hg] 109/71mm Hg (02/19/24 11:04 AM) 141/83mm Hg *H* (02/19/24 7:39 AM) 105/77mm Hg (02/19/24 4:08 AM) Respiratory Rate [16-30 br/min] 18 br/min (02/19/24 12:15 PM) 17 br/min (02/19/24 11:04 AM) 18 br/min (02/19/24 9:34 AM) 18 br/min (02/19/24 9:34 AM) Temperature [96.8-100.4 DegF] 98.0 DegF (02/19/24 11:04 AM) 99.1 DegF (02/19/24 7:39 AM) 98.2 DegF (02/19/24 4:08 AM) Liters per Minute 2 L/min (02/18/24 9:39 PM) 2 L/min (02/18/24 6:42 PM) 2 L/min (02/18/24 4:05 PM) Mode of Delivery (Oxygen) Room air (02/19/24 11:04 AM) Room air (02/19/24 7:39 AM) Room air (02/19/24 4:08 AM) Blood pressure sites Arm, right (02/19/24 11:04 AM) Arm, right (02/19/24 7:39 AM) Arm, right (02/19/24 4:08 AM) Temperature Route Oral (02/19/24 11:04 AM) Oral (02/19/24 7:39 AM) Oral (02/19/24 4:08 AM) Dry Weight 97.72 kg (02/18/24 2:21 PM) Social History Social History Type Response Smoking Status Former smoker entered on: 01/24/15 Sex Sex Representation Male (finding) Admission evaluation note * Carmine ALMANZA, Cecil: PERFORM, MODIFY Event Display: Admission Note Authored Date: Patient: ??NELI KIM ? Age:??63 Years?Sex:??Male?:??1960?? Provider Clinical Summary Consulting Physician: Dr. Mcneill Clinical Question: Rib Fx Consult Attending:??Dr. Mendoza Chief Complaint tx from [place], initially c/o back pain after a fall on 02/12, states he fell off the second step of a ladder, landing on his L back. pt has 10 rib fxs. given morphine prior to ems arrival History of Present Illness Mr. Kim is a 63-year-old male??with a prior history of prostate cancer??and??asthma??who presents as a transfer from outside hospital??for concerns of bilateral rib fractures after he had a fall from his??ladder.?? Patient was transferred to [facility] for further care and evaluation. ??A trauma consultation was requested given his rib fractures. ?? Patient was seen and evaluated at bedside.?? He is resting comfortably??with some mild??discomfort appreciated??when he??takes a deep breath.?? He states that on??02/13/2024??he was putting up [place] decorations in the house while he was on his ladder. ??He lost his footing and??fell backwards.?? He noted pain and discomfort??immediately.?? He has been trying to self medicate with Tylenol and ibuprofen [id number] but his pain continued to worsen which caused him to??present to outside hospital.?? He denies any fever, chills, nausea, vomiting.?? He denies any recent sick contacts. ??He denies any loss of consciousness??prior to his fall and/or after.?? He denies any head strike. ??He also??does not take any anticoagulation at baseline.?? I-S was completed at bedside and was only??250-500.?? Denies??any other pain other than chest pain with inspiration.?? Able to ambulate on his own without issue. Review of Systems Negative unless specified above Physical Exam Vitals & Measurements T:??98.5?F?? HR:??96??(Peripheral)?? RR:??18?? RR:??18?? BP:??136/88?? SpO2:??93%?? General: no acute distress, alert, awake Head: normocephalic, atraumatic, no hematomas, no abrasions, no wounds, no deformities Face: no ecchymosis, no abrasions, no wounds Eyes: pupils are 3mm, equal, round, and reactive; extraocular movement intact Ears: no hemotympanum, no blood in external auditory canal, no abrasions, no bass's sign Nose: no epistaxis, no deformity Mandible: no deformity, no malocclusion Neck: no hematoma, no ecchymosis, no wounds, trachea midline Chest: symmetric, no deformity, bilateral anterior??chest wall??tenderness to palpation as well as to deep inspiration; IS 250-500 Heart: regular rate and rhythm, no murmurs, Vascular: palpable dorsalis pedis and posterior tibial pulses bilaterally Lungs: clear to auscultation bilaterally, nonlabored breathing Abdomen: soft, nondistended, nontender, no wounds, no ecchymosis, no hematoma Pelvis: stable, nontender Back: no ecchymosis, no abrasions, no hematoma, no wounds Cervical spine: no midline deformities or stepoffs, no tenderness Thoracic spine: no midline deformities or stepoffs, no tenderness Lumbar spine: no midline deformities or stepoffs, no tenderness Extremities: no long bone deformities, no wounds, no abrasions, no ecchymosis, no hematomas, full active range of motion Neurologic: GCS15; CN II to XII grossly intact bilaterally; 5/5 strength and sensation to light touch intact in the bilateral upper and lower extremities?? Assessment/Plan Mr. Neli Kim??is a 63-year-old male??who was a trauma consult??as a transfer from outside hospital??for multiple rib fractures sustained??after a fall??from a ladder.?? He was barlow scanned and hisonly injuries??were rib fractures. ??He was transferred to [facility]??for a trauma consultation.?? On evaluation the patient??has??chest wall tenderness bilaterally??and is only to havean I-S of??250 to 500 cc.?? No other injuries??were discovered.?? His imaging was all reviewed. ??Given these findings the patient will be admitted??to the trauma surgical service??for??pain management??and respiratory monitoring. ?? Inj: Right-sided rib fractures 6 through 9, left-sided rib fractures 6 through 11 ?? Plan Intercare admission Diet Rib fracture pain protocol A.m. chest x-ray DVT prophylaxis PT consult CPT DuoNebs IS ?? Discussed with Dr. Mendoza Trauma Surgery [id number] ? Problem List/Past Medical History Ongoing No qualifying data Medications Inpatient Duoneb Inhalation Solution, 1 vials, BAND Nebulizer, 4 times a day Enoxaparin Inj, 30 mg= 0.3 mL, Subcutaneous Injection, 2 times a day gabapentin 100 mg oral capsule, 100 mg, By Mouth, 3 times a day ibuprofen 600 mg oral tablet, 600 mg, By Mouth, 3 times a day Lidocaine 5% Patch, 2 each, Topically, Daily oxyCODONE 5 mg oral tablet, 5 mg, By Mouth, Every 4 hours, PRN Remove Lidocaine Patch, 2 each, Topically, Daily at bedtime Tylenol 325 mg oral tablet, 975 mg, By Mouth, Every 6 hours Home No active home medications Allergies No Known Medication Allergies Social History Tobacco Former smoker Family History None Lab Results No labs resulted between 02/16/2024 00:00 and 02/17/2024 22:30?? Images Outside imaging reviewed,??patient was barlow scanned with the head and neck CT, chest CT and abdomen pelvis.?? Notable findings were??left-sided trace pleural effusion,??right-sided rib fractures 6 through 9, left-sided rib fractures 6 through 11.?? No intra-abdominal??traumatic??pathology as well as??no intracranial??pathology. Hospital Progress note * Julieth Bond RN: PERFORM, MODIFY, MODIFY, SIGN, VERIFY Event Display: Progress Note Hospital Authored Date: Patient: NELI KIM Age: 63 years Sex: Male : 1960 Associated Diagnoses: None Author: Julieth Bond RN Findings Problem Related to Alteration in Comfort : Alteration in Comfort/new 02/19/2024 12:00 EST Alteration in Comfort Related to Other: rib fractures Goals & Outcomes: Comfort Pt will report acceptable level of comfort & pain control, Pt will state importance of adhering to pain strategy regime, Pt will demonstrate necessary skills to manage pain, Non-verbal indicators will indicate comfort/pain control Interventions Implemented: Comfort Assess pain using appropriate pain scale/tools, Assess aggravating factors & prevent them accordingly, Assess alleviating factors & promote them accordingly BH Goals/Interventions, Comfort Yes Comfort, Problem Start 02/19/2024 8:48 Reviewed plan with, Comfort Patient Patient Progression, Comfort Pt progressing according to plan Comfort, Problem Ongoing Yes . Nursing Data Gastrointestinal Data. : Gastrointestinal Data. 02/19/2024 11:57 EST Gastrointestinal Symptoms Belching, Flatulence Abdomen Soft, Non-tender, Round Bowel Sounds LUQ Present Bowel Sounds RUQ Present Bowel Sounds LLQ Present Bowel Sounds RLQ Present Last Bowel Movement 02/13/2024 Ostomy present No Gastric tube present No GI WNL except . Integumentary Data. : Integumentary Data. 02/19/2024 12:02 EST Skin Color Normal for ethnicity Skin Temperature Warm Skin Integrity Intact Integumentary WNL . Neurological Data. : Neurological Data. 02/19/2024 11:57 EST 1 - 10 Pain Scale Score 7 Pain Interventions Pharmacological, PRN medication, Repositioning, Rest Neuro WNL . Respiratory/Pulmonary Data. : Respiratory/Pulmonary Data. 02/19/2024 11:57 EST Respiratory Symptoms None Respiratory effort Unlabored Patient participation Cooperative Upper Airway Clear Cough No cough Respiratory pattern Regular Left Upper Lobe Breath Sounds Clear Right Upper Lobe Breath Sounds Clear Right Middle Lobe Breath Sounds Clear Left Lower Lobe Breath Sounds Clear Right Lower Lobe Breath Sounds Clear Respiratory distress None Respiratory Treatment(s) Cough and deep breathe, Incentive spirometry Respiratory WNL except . Narrative/Incidental P:Alteration in Comfort related to Rib Fractures I: See interventions listed above E: Patient is Alert x Oriented x 4. Reporting 7/10 pain. Patient medicated with scheduled medications. Rest and Repositioning encouraged. Lung are clear on room air. Encouraged cough/ deep breath/ incentive spirometer. Patient reports pain when taking deep breath. Denies cough and shortness of breath. + color , motion, sensation to all bilateral extremities.+ pedal pulses and no edema. Strong and equal hand grasps + dorsi/plantar flexion. Abdomen is soft/ round/ non-tender to palpation in all four quadrants. + bowel sounds. + belching, + flatus, denies nausea/vomiting. Last bowel movement was02/12. Patient is voiding clear/ yellow/ odorless urine. Patient diet is Regular, tolerating well. Oral fluids encouraged. Skin is clean/ dry/ intact. Patient is ambulating independently in room and hallway. Bed locked and in lowest position. Call llanos within reach, patient able to use appropriately.. * Penelope Newberry RN: PERFORM, SIGN, VERIFY Event Display: Progress Note Hospital Authored Date: Patient: NELI KIM Age: 63 years Sex: Male : 1960 Associated Diagnoses: None Author: Penelope Newberry RN Findings Problem Related to Alteration in Comfort : Alteration in Comfort/new 02/19/2024 0:00 EST Alteration in Comfort Related to Other: rib fractures Goals & Outcomes: Comfort Pt will report acceptable level of comfort & pain control, Pt will state importance of adhering to pain strategy regime, Pt will demonstrate necessary skills to manage pain, Non-verbal indicators will indicate comfort/pain control Interventions Implemented: Comfort Assess pain using appropriate pain scale/tools, Assess aggravating factors & prevent them accordingly, Assess alleviating factors & promote them accordingly BH Goals/Interventions, Comfort Yes Comfort, Problem Start 02/19/2024 8:48 Reviewed plan with, Comfort Patient Patient Progression, Comfort Pt progressing according to plan Comfort, Problem Ongoing Yes . Narrative/Incidental P: Alteration is comfort I: please see interventions listed in care plan above E: patient endorses bilateral flank and back pain, worse with deep inspiration and movement. pain being well managed with scheduled Tylenol and PRN Oxycodone per patient report. PRN dilaudid available if needed. patient alert and oriented to person, place, time and situation. ambulating with standby assist andno device. lung sounds clear but diminished in the bases, denies any shortness of breath. vitals stable on room air. No edema, +Pulses, +CMS. bowel sounds+, abdomen soft/round/nontender, tolerating diet. last bowel movement 02/12 whish patient reports is abnormal but he hasn't eaten much or had an appetite since fall. voids. skin intact. Admission skin assessment completed with second RN Pranav Vo as witness per protocol. Please see biophysical for full patient assessment. Patient resting in bed with upper side rails up, wheels locked, call llanos within reach. Patient wearing non-skid socks. Patient reminded to ring for assistance and educated on safety measures.. * Anuradha Newton RN: PERFORM, SIGN, VERIFY Event Display: Progress Note Hospital Authored Date: Patient: NELI KIM Age: 63 years Sex: Male : 1960 Associated Diagnoses: None Author: Anuradha Newton RN Findings Problem Related to Alteration in Musculoskeletal : Alteration in Musculoskeletal Func/new 02/18/2024 14:00 EST Alteration in Musculoskeletal Related to Fracture Goals & Outcomes, Musculoskeletal Pt able to perform ADL's to best of ability, Pt demonstrates precautions/exercise/ transfers per protocol, Pt will ambulate safely with assistive device, Pt willbe free from complications of immobility, Pt will demonstrate ability to participate in ADL's, Pt will report acceptable level of comfort/pain relief Interventions, Musculoskeletal Monitor patients ambulation status, Assist with repositioning, Encourage deep breathing & coughing exercises, Obtain assistive devices as needed, Teach & Encourage use of Incentive spirometer, Teach Pt/caregiver on exercises, Teach pt/caregiver on use of pain scale, Teach Pt/caregiver complications of immobility, Teach Pt/caregiver techniques to increase mobility, Teach Pt/caregiver on safety precautions BH Goals/Interventions, Musculoskeletal Yes Musculoskeletal, Problem Start 02/18/2024 14:23 Reviewed Plan with, Musculoskeletal Patient Patient Progression, Musculoskeletal Plan Initiation . Narrative/Incidental Admission complete, unable to complete skin check due to lack of privacy. . Note * Julieth Bond RN: PERFORM Event Display: Discharge/Transfer Note Hospital Authored Date: [id number] Nursing Discharge Note Entered On: 02/19/2024 13:32 EST Performed On: 02/19/2024 13:32 EST by Julieth Bond RN Nursing Discharge Note 2 Discharge Time : 02/19/2024 13:32 EST Discharge Level of Care at Discharge : Home/Halfway/Foster Care Patient Left Unit Via : Ambulatory Patient Accompanied Off Unit with : Responsible adult DC Instructions Provided & Signed by Pt : Yes Patient Understands D/C Instructions : Yes Patient Instructions Discharge Signed : Yes Did Pt have Specialty Bed or Wound Vac : No Julieth Bond RN - 02/19/2024 13:32 EST * Willie Le: PERFORM Event Display: Discharge/Transfer Note Hospital Authored Date: [id number] Patient: ??NELI KIM ? Age:??63 Years?Sex:??Male?:??1960?? Admit Date Admission Date: 02/17/2024 Discharge Date 02/19/2024 Discharge Diagnoses Trauma, 02/17/2024 Rb fractures Hospital Course Mr. Neli Kim??is a 63-year-old male??who was a trauma consult??as a transfer from outside hospital??for multiple rib fractures sustained??after a fall??from a ladder.?? He was barlow scanned and hisonly injuries??were rib fractures. ??He was transferred to [facility]??for a trauma consultation.?? On evaluation the patient??has??chest wall tenderness bilaterally??and is only to havean I-S of??250 to 500 cc.?? No other injuries??were discovered.?? His imaging was all reviewed. ??Given these findings the patient will be admitted??to the trauma surgical service??for??pain management??and respiratory monitoring.?? Mr. Kim's inspiratory effort was poor today due to pain. ??Will continue to optimize pain control??and he is currently still admitted to trauma service.?? pain control improved with pain meds given./?? Ambulating without issue.?? Pain controlled and comfortable going home.?At this time, pain is controlled, patient is afebrile with no leukocytosis. ??Patientis appropriate for discharge to home. ??Please follow up in 1-2 weeks in trauma office for re-evaluation. ??Please take medications as prescribed and call trauma issues if any concerns or issues.? Injuries ??R 6-9, L 6-11 Rib fx Objective/Physical Exam on Day of Discharge Vitals & Measurements T:??99.1?F?? HR:??86??(Peripheral)?? RR:??17?? BP:??141/83?? SpO2:??93%?? HT:??186??cm?? WT:??97.72??kg?? BMI:??28.25?? Head: normocephalic, atraumatic Cardiac:?? RRR to palp Lungs: No increased WOB, IS 2000 Abdomen: soft, nondistended, nontender Pelvis: stable, nontender Extremities: no long bone deformities, no wounds, no abrasions, no ecchymosis, no hematomas, full active range of motion Neurologic:?? GCS 15 Psych: Normal mood and affect PCP Follow-Up/Heads-Up Rib fractures after fall from ladder Patient Discharge Condition Improved Discharge Disposition Home Inpatient Medications Medications (9) Active SCHEDULED: (7) Acetaminophen 325 mg Tablet (Tylenol 325 mg oral tablet) ??975 mg, By Mouth, Every 6 hours Albuterol/Ipratropium Inhalation Erika 3mL (Duoneb Inhalation Solution) ??1 vials, BAND Nebulizer, 4 times a day Enoxaparin 30 mg Inj (Enoxaparin Inj) ??30 mg 0.3 mL, Subcutaneous Injection, 2 times a day Gabapentin 300 mg Capsule (gabapentin 300 mg oral capsule) ??300 mg, By Mouth, 3 times a day Ibuprofen 600 mg Tablet (ibuprofen 600 mg oral tablet) ??600 mg, By Mouth, 3 times a day Lidocaine 5% Topical Patch (Lidocaine 5% Patch) ??2 each, Topically, Daily Remove Patch (Remove Lidocaine Patch) ??2 each, Topically, Daily at bedtime CONTINUOUS: (0) PRN: (2) HYDROmorphone 0.5 mg/0.5 mL Inj Syringe (Dilaudid Inj) ??0.5 mg 0.5 mL, IV Push Slowly, Every 6 hours OxyCODONE 5 mg IR Tablet (oxyCODONE 5 mg oral tablet) ??5 mg, By Mouth, Every 4 hours Discharge Medications Acetaminophen (Tylenol 325 mg oral tablet)?975?Milligram?By Mouth?Every 6 hours?for 14?Days Fluticasone-Salmeterol (Wixela Inhub 500 mcg-50 mcg inhalation powder)?1?inhalation?Inhalation?2 times a day?rinse mouth and throat after use Gabapentin (gabapentin 300 mg oral capsule)?300?Milligram?By Mouth?3 times a day?for14?Days Ibuprofen (ibuprofen 600 mg oral tablet)?600?Milligram?By Mouth?3 times a day?for 14?Days Oxycodone (oxyCODONE 5 mg oral tablet)?5?Milligram?By Mouth?Every 4 hours?as needed?for 3?Days?Pain , Moderate Labs Last 24 Hours BLOOD COUNT & DIFF ? Event Name?? Event Result?? Date/Time?? WBC 8.3 k/mm3 02/19/24 00:58:00 RBC 4.94 m/mm3 02/19/24 00:58:00 Hgb 15.4 Gm/dL 02/19/24 00:58:00 Hct 45.9 % 02/19/24 00:58:00 MCV 92.9 femtoliters 02/19/24 00:58:00 MCH 31.2 pg 02/19/24 00:58:00 MCHC 33.6 Gm/dL 02/19/24 00:58:00 Platelet Count 305 k/mm3 02/19/24 00:58:00 MPV 11.1 femtoliters 02/19/24 00:58:00 Nucleated RBC (Automated) 0 #/100 WBC'S 02/19/24 00:58:00 ? CHEM GENERAL ? Event Name?? Event Result?? Date/Time?? Sodium 140 mmol/L 02/19/24 00:58:00 Chloride 103 mmol/L 02/19/24 00:58:00 Bicarbonate Level 22 mmol/L 02/19/24 00:58:00 Anion Gap 15 02/19/24 00:58:00 BUN 26 mg/dL??High 02/19/24 00:58:00 Creatinine-Blood 0.88 mg/dL 02/19/24 00:58:00 Calcium, Ionized pH Corrected 1.19 mmol/L 02/19/24 00:58:00 Phosphorus 3.7 mg/dL 02/19/24 00:58:00 Magnesium 2.2 mg/dL 02/19/24 00:58:00 ? Patient Education Titles WebMD Ignite Patient Education - Rib Fracture?? Follow-Up Appointments Added Follow Up ?Time Frame ?Comments Bear ALEXANDER MD, Adin T?1 to 2 weeks Patient Instructions Trauma Special Instructions ? If you develop fever, chills, increased pain, nausea, vomiting, bleeding, or increased redness or pus around the wound please call the trauma surgery office at . Please take medicationsas prescribed and do not drive while on narcotic medications. ?? If you have any questions, please call the trauma surgery office at . ?? Please call your Primary Care Provider within 1 week for post hospital follow up and review of yourmedications. ?? Please take all meds as prescribed ?? You were seen for rib fractures, continue meds as prescribed, continue using IS 4-6 times every hour awake, you will follow up in the trauma clinic in 2 weeks, please arrive to the hospital one hour prior to appointment for a chest xray ?? If breathing gets worse and meds not helping please seek medical attention DAE ?? If pain gets worse and meds arent helping can call office for advice ?? In general, ribs take 4-6 weeks to heal so pain with movement is expected and should subside in a few minutes and at rest pain should be tolerable Images Chest 2 Views Frontal and Lat Event Date: 02/19/2024 07:05:34 EST Updated: 02/19/2024 7:06 EST Chest 2 Views Frontal and Lat This document has an image Reason For Exam Other:;Other: Chest??2 Views Frontal and Lat Chest??2 Views Frontal and Lat Event Date: 02/18/2024 08:36:34 EST Updated: 02/18/2024 9:19 EST XR Chest 2 Views Frontal and Lat This document has an image Reason For Exam Trauma;Other: RESULT: Chest 2 Views Frontal and Lat Examination:??Chest performed on 02/18/2024. ?? History: Trauma ?? Findings: ?? Frontal and lateral views of the chest are submitted without comparison. ?? The cardiac and mediastinal silhouettes are within normal limits. The lungs are clear. Trace pleural effusions are present. The osseous and soft tissue structures are unremarkable. ?? Impression: ?? Trace pleural effusions. WSN: [id number] ? Ordering Physician: Cecil Lou?? Signature Line Dictated By: ?Tonie ALMANZA , Mary Chawla Dictated Date/Time: ?02/18/24 9:16 am Reviewed By: ?Mary Schilling MD Signed By: ? Mary Schilling MD Signed Date/Time: ? 02/18/24 9:16 am Transcribed By: ? CSB Transcribed Date/Time: ?02/18/24 9:15 am ?? Chest 2 Views Frontal and Lat * Julieth Bond RN: PERFORM Event Display: Patient Education/Instruction Authored Date: [id number] Inpatient Adult Discharge Instructions. [address] [address] Name: NELI LÓPEZEN : 1960?? Visit: 02/17/2024 22:19?? Current Date: 02/19/2024 12:12 ?? Account: [id number]?? Inpatient Adult Discharge Instructions We would like to thank you for allowing us to assist you with your healthcare needs. The following includes patient education materials and information regarding your injury/illness. Our entire staffstrives to provide an excellent experience for our patients and their families. PLEASE ENSURE YOU FOLLOW-UP PER THE INSTRUCTIONS BELOW! ?? YOUR OPINION IS IMPORTANT TO US! Please complete the survey you may receive by mail or email. Your feedback will be used to make improvements to the healthcare experiences of our patients and their families. Surveys are administered by [employer] ?? If further treatment with your primary care physician or another doctor is recommended, it is important for you to keep the appointment. Call your primary care physician or return to the Emergency Department immediately if your condition worsens, fails to improve, or new symptoms develop. If you need to find a doctor, you can call [facility] [employer] for a referral at [phone] or toll free at [phone] or log in to [email or web address].. ?? [facility], in keeping with [facility] guidance, no longer requires face masks for staff, patientsor visitors in most situations. Similiar to time spent indoors at other locations, there is the chance that you were exposed to repiratory viruses during your time with us (such as flu or COVID-19). If you develop symptoms concerning for a viral respiratory infection, please seek testing (and treatment if indicated) from your medical provider or home test kit. ?? You can view and manage your care through the patient portal or by using a health care inocencia of your choosing. [employer] is a website that allows you to securely view your medical information including your hospital discharge summary, office visit summaries, medications and follow-up visits. You can also request appointments, renew medications, and request access to your medical information using a health care inocencia of your choosing, or just ask a question. You can enroll at [email or web address] or register during your next office visit. You have been discharged from [facility], Patient Care Unit: SW6??. If you have any questions regarding these instructions, including results of studies pending, afteryou leave, please call us and we will be happy to assist you 05/10. [facility] Your Care Team Attending Physician Etsrella Mendoza MD?? Consulting Providers Estrella Mendoza MD?? Discharging Providers Willie Le Reason for Your Visit tx from [place], initially c/o back pain after a fall on 02/12, states he fell off the second step of a ladder, landing on his L back. pt has 10 rib fxs. given morphine prior to ems arrival?? Your Diagnosis Trauma Tests Performed Below is a partial list of the tests performed during your hospitalization. You may have had other tests and procedures not included in this list. Please discuss all test results with your provider. COVID-19 (2019 Novel Coronavirus) PCR CXR W/ Frontal and Lat?-- Results Pending -- BUN?? CBC w/ Differential?? COVID-19 (2019 Novel Coronavirus) PCR?? Creatinine?? Electrolytes?? Ionized Calcium?? Magnesium Level?? Phosphorus Level?? Chest 2 Views Frontal and Lat (CXR W/ Frontal and Lat)?? Primary Care Provider Timothy Deleon MD? Advance Directive Health Care Proxy on File No Patient refuses to discuss Discharge Vitals Temperature: 98 DegF Height: 186 cm Pulse Rate:??92 bpm??High Weight: 97.72 kg Respiratory Rate: 17 br/min Body Mass Index:??28.25 kg/m2??High Systolic Blood Pressure: 109 mm Hg Body surface area: 2.25 Diastolic Blood Pressure: 71 mm Hg ?? Oxygen Saturation: 94 % ?? Studies Pending All studies ordered during this hospital stay have been completed unless listed below. Please discuss all pending results with your provider listed above in these instructions. ?? BUN?? CBC w/ Differential?? Creatinine?? Electrolytes?? Ionized Calcium?? Magnesium Level?? Phosphorus Level?? Chest 2 Views Frontal and Lat (CXR W/ Frontal and Lat)?? What to do next Instructions From Your Doctor Trauma Special Instructions ? If you develop fever, chills, increased pain, nausea, vomiting, bleeding, or increased redness or pus around the wound please call the trauma surgery office at . Please take medicationsas prescribed and do not drive while on narcotic medications. ?? If you have any questions, please call the trauma surgery office at . ?? Please call your Primary Care Provider within 1 week for post hospital follow up and review of yourmedications. ?? Please take all meds as prescribed ?? You were seen for rib fractures, continue meds as prescribed, continue using IS 4-6 times every hour awake, you will follow up in the trauma clinic in 2 weeks, please arrive to the hospital one hour prior to appointment for a chest xray ?? If breathing gets worse and meds not helping please seek medical attention DAE ?? If pain gets worse and meds arent helping can call office for advice ?? In general, ribs take 4-6 weeks to heal so pain with movement is expected and should subside in a few minutes and at rest pain should be tolerable ?? Orders? 02/19/24 11:55:00 EST?? You Need to Schedule the Following Appointments Follow Up with??Bear ALEXANDER MD, Néstor T When:??Within 1 to 2 weeks Where: [address] [place] [address] Drive [address] [facility] Trauma and [place] [address]- Discharge Medications NELI KIM :1960 Visit Date:02/17/2024 Medications: Please continue your medications until treatment is completed or stopped by your provider. Medications not listed below should be discontinued. Discuss any questions related to medications with your provider. What How Much When Instructions Next Dose New Acetaminophen (Tylenol 325 mg oral tablet) 975 Milligram Oral Every 6 hours Duration: 14 Days Pickup at [place] [address] 02/18 5 Pm New Gabapentin (gabapentin 300 mg oral capsule) 300 Milligram Oral 3 times a day Duration: 14 Days Pickup at [place] [address] 02/18 3 Pm New Ibuprofen (ibuprofen 600 mg oral tablet) 600 Milligram Oral 3 times a day Duration: 14 Days Pickup at [place] [address] 02/18 3 Pm New Oxycodone (oxyCODONE 5 mg oral tablet) 5 Milligram Oral Every 4 hours as needed for Pain , Moderate Duration: 3 Days Pickup at [place] [address] as needed Unchanged Fluticasone-Salmeterol (Wixela Inhub 500 mcg-50 mcg inhalation powder) 1 inhalation Inhalation Twice a day rinse mouth and throat after use ?? 02/18 9 Pm Pharmacy Information [facility] 3: [address] [place] [address] [phone] Prescription Given During Visit Acetaminophen (Tylenol 325 mg oral tablet) - 975 mg, By Mouth, Every 6 hours, # 168 tablet, 0 Refills, [facility] [address], [address] [place] [phone]?? Gabapentin (gabapentin 300 mg oral capsule) - 300 mg, By Mouth, 3 times a day, # 42 capsule, 0 Refills, [facility], [address] [place] [id number] [phone]?? Ibuprofen (ibuprofen 600 mg oral tablet) - 600 mg, By Mouth, 3 times a day, # 42 tablet, 0 Refills,[facility], [address] [place] [phone]?? Oxycodone (oxyCODONE 5 mg oral tablet) - 5 mg, By Mouth, Every 4 hours, # 18 tablet, 0 Refills, [facility], [address] [place] [address] [phone]?? Laboratory Results Below is a partial list of the most recent Laboratory test results done prior to this discharge. You may have had other tests and procedures not included in this list. Please discuss all test resultswith your provider. Est Creatinine Clearance - 97.74 mL/min (02/19/2024) COVID-19 (2019 Novel Coronavirus) PCR (02/17/2024) ???COVID-19 PCR Specimen Source - NASAL???COVID-19 PCR Result - NEGATIVE You will be contacted within 72 hours with your results. Allergies (NKA means No Known Allergies) No Known Medication Allergies Problems No qualifying data available Education Materials Below is the list of Educational Leaflet Providered with your Discharge Instructions. WebMD Ignite Patient Education - Rib Fracture?? Valuables and Belongings I fully understand and agree that [facility] accepts no responsibility for all my personal property including clothing, toilet articles, radios, jewelry, dentures, hearing aids, rings, money, or any other property that is in my possession or is brought to me after admission. I understand certain valuables may be placed in a hospital safe for a short period of time. I understand that the hospital is not liable for loss or damage due to accident, fire, or other natural occurrence while said property is in the safe. I accept full responsibility for any personal property that I keep with me, and will not hold the hospital responsible in case of loss or disappearance. I acknowledge that i have been encouraged to send valuables and belongings home. ?? Date for Pt to Sign Valuables/Belongings: 02/18/24 23:43:00 ?? Other Discharge Information ? Pulmonary Rehab Status?? Pulmonary Rehab Discharge Status?? Respiratory Rate: 17 br/min ? Common Emergency Awareness Tips IS IT A STROKE? Act FAST and Check for these signs: FACE Does the face look uneven? ARM Does one arm drift down? SPEECH Does their speech sound strange? TIME Call at any sign of stroke ?? Heart Attack Signs Chest discomfort: Most heart attacks involve discomfort in the center of the chest and lasts more than a few minutes, or goes away and comes back. It can feel like uncomfortable pressure, squeezing, fullness or pain. Discomfort in upper body: Symptoms can include pain or discomfort in one or both arms, back, neck, jaw or stomach. Shortness of breath: With or without discomfort. Other signs: Breaking out in a cold sweat, nausea, or lightheaded. Remember, MINUTES DO MATTER. If you experience any of these heart attack warning signs, call to get immediate medical attention! ?? Smoking can increase your chances of developing chronic health problems and can cause harmful effects to other family members in your house. If you smoke, you are strongly encouraged to quit. Please call [facility] [employer] at [phone] or [phone] ([phone]) or log in to [email or web address] for referrals to smoking cessation programs. ?? 182 Suicide & Crisis Lifeline is available 05/10 if you or someone you know needs to find a reason to keep living. By calling 936 you'll be connected to a skilled, trained counselor at a crisis center in your area. INPATIENT DISCHARGE INSTRUCTIONS SIGNATURE PAGE JULIO NELI Location:[facility] Registration Date and Time:02/17/2024 22:19 EST Primary Care Physician: Timothy Deleon MD, Attending Physician: Estrella Mendoza MD, I NELI KIM, have received the above patient education materials/instructions and have verbalized understanding. If ambulance or transport services are being used I further acknowledge being given a choice of service. ?? If you need to contact me, please call me at this number: . Patient/Interior Design Assistant Name: Patient/Interior Design Assistant Signature: Relationship to Patient: Witness Name/Signature: Date: * Willie Le: PERFORM Event Display: Patient Education Leaflets Authored Date: [id number] Rib Fracture ?? [id number] Rib Fracture You broke 1 or more ribs. This is called a rib fracture. Rib fractures don't need a cast like otherbones. They will heal by themselves in about 4 to 6 weeks. The first 3 to 4 weeks will be the most painful. During this time??deep breathing, coughing, or changing position from sitting to lying down, may cause the broken ends to move slightly. Home care ??? Rest. Don't do any heavy lifting or strenuous exertion until the pain goes away. ??? It hurts to breathe when you have a broken rib. This puts you at risk of getting pneumonia from poorairflow through your lungs. To prevent this: o Take??a few??very deep breaths??once an hour while you're awake. Breathe out??through pursed lips as if you are blowing up a balloon.??If possible, actua lly blow up a balloon or a rubber glove.??This exercise builds up pressure inside the lung and prevents collapse of the small air sacs of the lung. This exercise may cause some pain at the site of injury. This is normal. o You may have gotten a breathing exercise device called an incentive spirometer. Use it at least 4 times a day, or as directed. ??? Apply an ice pack over the injured area for 15 to 20 minutes every??1 to 2??hours. Do this for??the first??24 to 48 hours. To make an ice pack, put ice cubes in a plastic bag that seals at the top. Wrap the bag in a clean, thin towel or cloth. Never put ice or an ice pack directly on your skin. Keep using??ice packs??as needed to ease pain and swelling. ??? You may use??[id number] pain medicine??to control pain, unless another pain medicine was prescribed.??If you have chronic liver or kidney disease or ever had a stomach ulcer, gastrointestinal??bleeding, or take a blood thinner, talk with your healthcare provider??before??using these medicines. ??? If your pain is not controlled, contact your provider. Sometimes a stronger painmedicine may be needed. A nerve block can be done in case of severe pain. It will numb the nerve between the ribs. ?? Follow-up care Follow up with your healthcare provider, or as advised. In rare cases, a broken rib will cause complications in the first few days that may not be clearly seen during your initial exam. This can include collapsed lung, bleeding around the lung or into the belly (abdomen), or pneumonia. So watch forthe signs below. If X-rays were taken,??you will be told of any new findings that may affect your care. ?? Call 911 Call 911 if you have: ??? Dizziness, weakness or fainting ??? Shortness of breath with or without chest discomfort ??? New or worsening abdominal pain ??? Discomfort in other areas of your upper bodysuch as your shoulders, jaw, neck, or arms ?? When to get medical advice Call your healthcare provider right away if any of these occur: ??? Increasing chest pain with breathing ??? Fever of 100.4??F (38??C) or above, or as directed by your provider ??? Chills ??? Congested cough, nausea, or vomiting ?? Last Reviewed Date: 2021 ?? [id number] [employer] All rights reserved. This information is not intended as a substitute for professional medical care. Always follow your healthcare professional's instructions. ?? Patient Care team information Care Team Personnel Name: Timothy Deleon MD Position: [facility] Outreach Member Role: PCP Address: [address] [place] [address] Timothy Chawla [place] [address]- Telecom: Name: Iris Morejon RN Position: [facility] RN Member Role: Primary Care Nurse Insurance Providers Guarantor name: NA Health Plan Information #: 1 Payer: [employer] Member Number: [id number] Policy Number: NA Group Number: [id number] Health Plan Information #: 2 Payer: [employer] Member Number: [id number] Policy Number: NA Group Number: [id number]
== END 2024-02-17 19:44 | disposition short-term general hospital (02) ==
PROVIDERS: Physician Assistant; Physician Assistant Medical; Emergency Provider Student in an Organized Health Care Education/Training Program; PCP Internal Medicine
DX: S22.43XA Multiple fractures of ribs, bilateral, initial encounter for closed fracture (principal); K59.00 Constipation, unspecified; M54.50 Low back pain, unspecified; R51.9 Headache, unspecified; R00.0 Tachycardia, unspecified; M54.2 Cervicalgia; R06.02 Shortness of breath; M53.3 Sacrococcygeal disorders, not elsewhere classified; R11.2 Nausea with vomiting, unspecified; W11.XXXA Fall on and from ladder, initial encounter; Y93.89 Activity, other specified; Y92.89 Other specified places as the place of occurrence of the external cause; Y99.8 Other external cause status; Z87.891 Personal history of nicotine dependence; Z79.899 Other long term (current) drug therapy
CPT/HCPCS: 36415; 70450; 71250; 72100; 72125; 72220; 74176; 80053; 83690; 83735; 85025; 85610; 93005; 96361; 96374; 96376; 99285; J2270

== ENCOUNTER → 2024-02-17 11:47 | Outpatient (BNV) | payer BC, SELFPAY | PROVIDERS: Emergency Provider Student in an Organized Health Care Education/Training Program; PCP Internal Medicine; Visit Provider Radiology Diagnostic Radiology | DX: M54.2 Cervicalgia (principal); M54.50 Low back pain, unspecified | CPT/HCPCS: 70450; 72100; 72220 ==

== ENCOUNTER → 2024-02-17 11:47 | Outpatient (BNV) | payer BC, SELFPAY | PROVIDERS: Emergency Provider Student in an Organized Health Care Education/Training Program; PCP Internal Medicine; Visit Provider Internal Medicine Cardiovascular Disease | DX: R00.0 Tachycardia, unspecified (principal) | CPT/HCPCS: 93010 ==

== ENCOUNTER 2024-03-21 08:45 | Outpatient (AMB) | payer BC, SELFPAY ==
--- NOTE | 2024-03-21 08:54 | A.OFFVIS_ITS ---
Vital Signs 03/21/24 08:59 Height 6 ft Weight 205 lb BMI 27.8 BP 135/86 Blood Pressure Location Rt brachial Position Sitting Pulse 95 Intake Visit Reasons: Right inguinal hernia *Dr. Deleon urgent req* Intake Note: Patient referred by pcp Dr. Deleon for [facility]. Reports pain started about 1m ago. Patient c/o: feels like hernia is enlarging, bothersome when bending. Denies nausea, diarrhea, constipation. Bridge Mechanic Required: No Allergies No Known Allergies [No Known Allergies*] Allergy (Verified 02/17/24 11:49) Medication List - Last Reconciled 03/21/24 by Jason Bergman MD fluticasone propion-salmeterol 500-50 mcg/dose (Advair Diskus) 1 ea PO BID tadalafil 5 mg PO DAILY 90 days vitamin E (dl, acetate) 450 mg PO DAILY 90 days HPI Comments Details: 63-year-old male patient presenting with complaints of a painful lump in the right groin. He recently fell off a ladder and was treated in the emergency department and subsequently sent to [facility] for further management. He was found to have multiple bilateral rib fractures and noted on CT to have a large right inguinal hernia. The hernia was found to contain a portion of the bladder wall. He is able to feel a lump in the right groin with some pain associated with the hernia. He denies any new urinary symptoms but was previously treated for prostate CA with radiation and does have urinary frequency. He denies any bowel changes, nausea or vomiting. He presents to discuss possible repair of this right inguinal hernia. He denies any previous history of hernias or hernia surgery. [facility] Medical History Malignant neoplasm of prostate Asthma Erectile dysfunction following radiation therapy Elevated blood pressure reading Prostate cancer Surgical History History of surgery Social History Alcohol intake: current Alcohol intake frequency: 0-2 drinks per day Patient Tobacco Use Status: Former Tobacco user Review of Systems Const All systems reviewed & are unremarkable except as noted in HPI and below Physical Exam Vital Signs: Last Vital Signs Pulse 95 03/21/24 08:59 BP 135/86 03/21/24 08:59 BMI result Body Mass Index 27.8 Const General: cooperative and no acute distress Nutritional Appearance: well nourished Orientation/consciousness: patient oriented x3 Limitations: no limitations HEENT Head: Yes normocephalic and Yes atraumatic Ears: hearing grossly normal bilaterally Resp Effort & Inspection: normal respiratory effort, no audible wheezes, no cough and no respiratory distress Cardio Jugular venous distension: no JVD GI Other: Examination in the standing position revealed a palpable lump in the right groin which increases in size with Valsalva maneuvers but does reduce with light pressure. No hernia noted on the left side. Inspection: Yes normal to inspection Skin Other: Warm, dry, no rash Neuro General: patient oriented x3 Extrem General: Yes no clubbing, cyanosis or edema Assessment & Plan Assessment & Plan (1) Right inguinal hernia: Code(s): K40.90 - Unilateral inguinal hernia, without obstruction or gangrene, not specified as recurrent Category: Medical Plan 63-year-old male patient presenting with a palpable lump in the right groin of approximately 1 month's duration. This is initially identified after a fall off a ladder. CT abdomen and pelvis confirmed a large right inguinal hernia containing bladder wall. On examination she does indeed have a reducible right inguinal hernia. I recommended repair of this right inguinal hernia with mesh and after discussion of the procedure, risks, and alternatives, he consents to a right inguinal hernia repair with mesh. Coding Level of Care Code New Pt Level 4 (64534) Diagnoses Right inguinal hernia K40.90
--- OUTSIDE RECORDS SUMMARY | 2024-03-21 08:57 | XMS_ITS | Continuity of Care Document ---
Author Organization [facility] Address [address] [place] [address] ve [address] [place] [address]- Care Team Providers Care Clinic Office Coordinator Name Role Phone Timothy Deleon MD Primary Care Physician [place] [facility] [place] - 03/10/[address] [place] [address]- Attending Physician: Darrel Mckeon DO Encounter Type: Office Visit Allergies, Adverse Reactions, Alerts No Known Medication Allergies Medications gabapentin 300 mg oral capsule 300 mg, By Mouth, 3 times a day, # 42 capsule, Refills 0, Tot. Refills 0, Maintenance, 02/19/24 11:05:00 AM EST, Route to Pharmacy Electronically, [facility], Partial fill upon patient request if the prescription is for a schedule II opioid drug., 186, cm, 02/19/24 11:04:00 EST, Height, 97.72, kg, 02/18/24 14:21:00 EST, Dry Weight Start Date: 02/19/24 Stop Date: 03/04/24 Status: Ordered Quantity: 42.0 Unit: capsule Repeat number: 1 Wixela Inhub 500 mcg-50 mcg inhalation powder 1 inhalation, Inhalation, 2 times a day, rinse mouth and throat after use, 0 Refills, Maintenance, 02/18/24 1:34:00 PM EST, Powder, Partial fill upon patient request if the prescription is for a schedule II opioid drug. Start Date: 02/18/24 Status: Ordered Repeat number: 1 Vital Signs Most recent to oldest [Reference Range]: 1 Height 186 cm (03/03/24 2:39 PM) Weight 95.4 kg (03/03/24 2:39 PM) Oxygen Saturation [94-100 %] 98 % (03/03/24 2:39 PM) Pulse Rate [55-90 bpm] 108 bpm *H* (03/03/24 2:39 PM) Body Mass Index [18.5-24.99 kg/m2] 27.58 kg/m2 *H* (03/03/24 2:39 PM) Blood Pressure [90-138/55-84 mm Hg] 119/ 77mm Hg (03/03/24 2:39 PM) Temperature [96.8-100.4 DegF] 98.9 DegF (03/03/24 2:39 PM) Blood pressure sites Arm, left (03/03/24 2:39 PM) Temperature Route Temporal (03/03/24 2:39 PM) Weight Obtained Via Standing scale (03/03/24 2:39 PM) Social History Social History Type Response Smoking Status Former smoker entered on: 01/24/15 Sex Sex Representation Male (finding) Patient Care team information Care Team Personnel Name: Timothy Deleon MD Position: [facility] Outreach Member Role: PCP Address: [address] [place] [address] Timothy Deleon MD [place], [place] [address] Telecom: Name: Iris Morejon RN Position: [facility] RN Member Role: Primary Care Nurse Care Team Related Persons Name: MILENA DOTY Insurance Providers Guarantor name: CESAR Health Plan Information #: 1 Payer: [employer] Member Number: [id number] Policy Number: NA Group Number: [id number] Health Plan Information #: 2 Payer: [employer] Member Number: [id number] Policy Number: NA Group Number: [id number]
--- OUTSIDE RECORDS SUMMARY | 2024-03-21 08:57 | XMS_ITS | Patient Health Record ---
Author Organization [facility] Address [address] [place] [address] Care Team Providers Care Analysis Analyst Name Role Phone Timothy Deleon MD Primary Care Provider Marivel Crowe Unavailable [phone] Allergies No Known Allergies Reason For Referral [...] Problem Status W/U Status Risk Notes Problem [id number] Plantar wart (B07.0) Active confirmed Plan Of Treatment No Information Insurance Providers Payer Name Payer Address Payer Phone Subscriber Number Group Number Insured Name Patient Relationship to Insured Coverage Start Date Coverage End Date [employer] [address] [place] [address] [id number] Jose Carlos Catherine Self - patient is the insured Medical (General) History Medical History History ICD Code asthma Surgical History Surgery Date(Month/Year)
--- OUTSIDE RECORDS SUMMARY | 2024-03-21 08:57 | XMS_ITS | Patient Health Record ---
Author Organization [facility] Address [address] [place] [address] Care Team Providers Care Fountain Supervisor Name Role Phone Timothy Deleon MD Primary Care Provider Terrence Rai Unavailable [phone] ALLERGIES No Known Allergies REASON FOR REFERRAL No Information MEDICATIONS Medication SIG (Take, Route, Frequency, Duration) Notes Start Date End Date Status Advair Diskus 250-50 MCG/DOSE 1 puff Inhalation Twice a day Active IMMUNIZATIONS Vaccine Route Administration Date Status Comme nts Influenza Unknown 12/13/2021 Administered SOCIAL HISTORY Sex Assigned At : Social History Observation Description Sex Assigned At Unknown PROBLEMS Problem Type ICD Code Onset Dates Problem Status W/U Status Risk SNOMED Code Notes Problem Encounter for screening for malignant neoplasm of colon (Z12.11) Active confirmed [id number] Problem Encounter for screening for malignant neoplasm of rectum (Z12.12) Active confirmed Screening for malignant neoplasm of rectum (031928800) Problem Preprocedural examination (Z01.818) Active confirmed 763081182 Problem RUQ pain (R10.11) Active confirmed 3017 06139 Problem History of adenomatous polyp of colon (Z86.010) Active confirmed 467886671 Problem Family history of colon cancer (Z80.0) Active confirmed 948079264 Problem Diverticulosis of large intestine without perforation or abscess without bleeding (K57.30) Active confirmed Diverticul ar disease of colon (791389751) PLAN OF TREATMENT Pending Test Test Name Order Date US ABD 04/22/2022 Pathology 06/03/2022 Future Test Test Name Order Date COLONOSCOPY 07/08/2016 COLONOSCOPY 04/22/2022 Insurance Providers Payer Name Payer Address Payer Phone Subscriber Number Group Number Insured Name Patient Relationship to Insured Coverage Start Date Coverage End Date [facility] [address] [place], [place] [id number] NELI KIM Self - patient is the insured MEDICAL (GENERAL) HISTORY Medical History History ICD Code Asthma Prostate cknpib-XNF-CdDr. Marquez, III ----06/2015 Denies [place],DM,CVA,renal disease-- Negative abdominal ultrasound in October of 2014 Screening colonoscopy in Sep with removal of 3 small tubular adenomas Surgical History Surgery Date(Month/Year)
[2024-03-21 08:59] VITALS: BP 135/86; PULSE 95; BMI 27.8
== END 2024-03-21 09:20 | disposition home or self-care (01) ==
PROVIDERS: PCP Internal Medicine; Visit Provider Surgery
DX: K40.90 Unilateral inguinal hernia, without obstruction or gangrene, not specified as recurrent (principal)
CPT/HCPCS: 99204

== ENCOUNTER → 2024-03-21 08:45 | Outpatient (BNVA) | payer BC, SELFPAY | PROVIDERS: PCP Internal Medicine; Visit Provider Surgery ==

== ENCOUNTER 2024-04-10 07:35 | Day surgery (SDC) | payer BC, SELFPAY ==
[2024-04-10 07:18] VITALS: BMI 27.8
--- OUTSIDE RECORDS SUMMARY | 2024-04-10 07:39 | XMS_ITS | Patient Health Record ---
Author Organization [facility] Address [address] [place] [address] Care Team Providers Care Live Truck Technician Name Role Phone Timothy Deleon MD Primary Care Provider Terrence Rai Unavailable [phone] ALLERGIES No Known Allergies REASON FOR REFERRAL [...] malignant neoplasm of colon (Z12.11) Active confirmed 835432672 Problem Encounter for screening for malignant neoplasm of rectum (Z12.12) Active confirmed Screening for malignant neoplasm of rectum (691914062) Problem Preprocedural examination (Z01.818) Active confirmed 122345259 Problem RUQ pain (R10.11) Active confirmed 3017 16037 Problem History of adenomatous polyp of colon (Z86.010) Active confirmed 576896241 Problem Family history of colon cancer (Z80.0) Active confirmed 264373731 Problem Diverticulosis of large intestine without perforation or abscess without bleeding (K57.30) Active confirmed Diverticul ar disease of colon (659558596) PLAN OF TREATMENT Pending Test Test Name Order Date US ABD 04/22/2022 Pathology 06/03/2022 Future Test Test Name Order Date COLONOSCOPY 07/08/2016 COLONOSCOPY 04/22/2022 Insurance Providers Payer Name Payer Address Payer Phone Subscriber Number Group Number Insured Name Patient Relationship to Insured Coverage Start Date Coverage End Date [facility] [address] [place], [place] [id number] NELI KIM Self - patient is the insured MEDICAL (GENERAL) HISTORY Medical History History ICD Code Asthma Prostate apixis-TKY-FqDr. Marquez, III ----06/2015 Denies [place],DM,CVA,renal disease-- Negative abdominal ultrasound in October of 2014 Screening colonoscopy in Sep with removal of 3 small tubular adenomas Surgical History Surgery Date(Month/Year)
--- OUTSIDE RECORDS SUMMARY | 2024-04-10 07:40 | XMS_ITS | Patient Health Record ---
Author Organization [facility] Address [address] [place] [address] Care Team Providers Care Body Rolling Machine Tender Name Role Phone Timothy Deleon MD Primary Care Provider Marivel Crowe Unavailable [phone] Allergies No Known Allergies Reason For Referral [...] Problem Status W/U Status Risk Notes Problem [id number] Plantar wart (B07.0) Active confirmed Plan Of Treatment No Information Insurance Providers Payer Name Payer Address Payer Phone Subscriber Number Group Number Insured Name Patient Relationship to Insured Coverage Start Date Coverage End Date [employer] [address] [place] [address] [id number] Jose Carlos Catherine Self - patient is the insured Medical (General) History Medical History History ICD Code asthma Surgical History Surgery Date(Month/Year)
[2024-04-10 07:42] VITALS: BP 148/97; PULSE 99; RESP 20; TEMP 36.6; O2SAT 97; BMI 27.9
[2024-04-10] MEDS: Lactated Ringers 1,000 ML 100 ML IVCONT (08:02)
--- NOTE | 2024-04-10 08:33 | MHC.SHP ---
Pre-Procedural Eval Section A - 24 Hr Update-Section A only Date of Service: 04/10/24 The patient is an INPATIENT: No Changes since office visit: Yes Patient answered all questions; No Cold of Flu in the past 2 weeks, No New Medical Problems and No Changes in Medication The patient has been examined within 24 hours of the surgical procedure. The History & Physical has been completed within 30 days and I have reviewed it.: Yes Section B - Complete if H&P > 30 days Chief Complaint: Unilateral inguinal hernia, without obstruction or Allergies: Allergies Allergy/AdvReac Type Severity Reaction Status Date / Time No Known Allergies Allergy Verified 02/17/24 11:49 [No Known Allergies*] Plan Diagnosis/Plan: Unchanged I have reviewed the history and physical and performed a pertinent physical examination on my patient. No changes have occurred unless specified. Time Spent With Patient Time: Total time managing care of this patient today ____ minutes.
--- NOTE | 2024-04-10 08:50 | P.CONAN_ITS ---
Documented by User: Yeni Brown NP 04/07/24 12:01 HPI - Anesthesia Eval Consult details Narrative: 63yo M for Right Hernia Inguinal Reducible with mesh 02/2024 fall from ladder with multiple rib fx. [facility] [place] [facility] trauma. Uneventful recovery with outpt trauma clinic f/u. [facility] Active Problems Active Problems: All Active Problems Right inguinal hernia (Acute) Erectile dysfunction (Acute) Urinary urgency (Acute) Malignant neoplasm of prostate (Acute) Past Medical History Medical History Malignant neoplasm of prostate Asthma Erectile dysfunction following radiation therapy Elevated blood pressure reading Prostate cancer Family History Family history of problems with anesthesia: No Surgical History Surgical History History of surgery History of Problems with Anesthesia: No Social History Social History Alcohol intake: current Alcohol intake frequency: holidays/special occasions only Patient Tobacco Use Status: Former Tobacco user Are you DNR?: No Advance Directives: No Advance Directives Information Provided: Yes Recently lost weight without trying: No Nutrition Risks: No Nutritional Risk Meds Allergies Allergy/AdvReac Type Severity Reaction Status Date / Time No Known Allergies Allergy Verified 02/17/24 11:49 [No Known Allergies*] Home Medications ?Medication ?Instructions ?Recorded ?Confirmed ?Last Taken ?Type fluticasone 500 mcg-salmeterol 50 1 ea PO BID 07/09/21 03/21/24 Unknown History mcg/dose blistr powdr for inhalation (Advair Diskus) Exam Pertinent Lab Results Pertinent Lab Results: Laboratory Tests 02/17/24 13:03 WBC 10.0 Hgb 15.9 Hct 46.7 Plt Count 316 Sodium 139 Potassium 4.3 Chloride 105 Carbon Dioxide 26 BUN 21 H Creatinine 0.92 Narrative Narrative: EKG 02/2024 Vent. Rate : 108 BPM Atrial Rate : 108 BPM P-R Int : 138 ms QRS Dur : 092 ms QT Int : 350 ms P-R-T Axes : 042 026 045 degrees QTc Int : 469 ms Sinus tachycardia Otherwise normal ECG When compared with ECG of 26-APR-2001 08:46, Nonspecific T wave abnormality now evident in Inferior leads Assessment and Plan Assessment Anesthesia Assessment: Chart Reviewed Final Anesthetic Review Family History of Problems with Anesthesia: No History of Problems with Anesthesia: No Documented by User: Nafisa Archer DO 04/10/24 09:28 [facility] Past Medical History Medical History Malignant neoplasm of prostate Asthma Erectile dysfunction following radiation therapy Elevated blood pressure reading Prostate cancer Family History Family history of problems with anesthesia: No Surgical History Surgical History (Reviewed 03/21/24 @ 09: by Jason Bergman MD) History of surgery History of Problems with Anesthesia: No Social History Social History Alcohol intake: current Alcohol intake frequency: holidays/special occasions only Patient Tobacco Use Status: Former Tobacco user Are you DNR?: No Advance Directives: No Advance Directives Information Provided: Yes Recently lost weight without trying: No Nutrition Risks: No Nutritional Risk Meds Allergies Allergy/AdvReac Type Severity Reaction Status Date / Time No Known Allergies Allergy Verified 02/17/24 11:49 [No Known Allergies*] Home Medications ?Medication ?Instructions ?Recorded ?Confirmed ?Last Taken ?Type fluticasone 500 mcg-salmeterol 50 1 ea PO BID 07/09/21 03/21/24 Unknown History mcg/dose blistr powdr for inhalation (Advair Diskus) Exam Exam Date and Time: 04/10/24 0850 Height,Weight and Vital Signs: Height 6 ft Weight 93.44 kg Vital Signs Temperature 98 F 04/10/24 07:42 Pulse Rate 99 04/10/24 07:42 Respiratory Rate 20 04/10/24 07:42 Blood Pressure 148/97 H 04/10/24 07:42 Pulse Oximetry 97 04/10/24 07:42 Oxygen Delivery Method Room Air 04/10/24 07:42 Temperature 98 F 04/10/24 07:42 Pulse Rate 99 04/10/24 07:42 Respiratory Rate 20 04/10/24 07:42 Blood Pressure 148/97 H 04/10/24 07:42 Pulse Oximetry 97 04/10/24 07:42 Oxygen Delivery Method Room Air 04/10/24 07:42 Airway Mallampati Class: II TM Dist: <=3cm Neck ROM: Full Loose/Missing/Broken Teeth: No (patient denies any loose or broken teeth) Heart: S1S2 Lungs: CTAB Assessment and Plan Assessment Anesthesia Assessment: Anesthesia Plan Discussed and Chart Reviewed Final Anesthetic Review Family History of Problems with Anesthesia: No History of Problems with Anesthesia: No NPO: Yes ASA Class: II Final Preanesthetic Review: No Changes in Pt Med Stat, Meds/Allgs Chart Reviewed, Consent Obtained/Reviewed and Anes Risks/Benef Reviewed Patient Risk: Low Procedure Risk: Low Anesthetic Plan Anesthetic Plan: MAC: and Agree w/ Assess. and Plan Disposition: Standard PACU
--- NOTE | 2024-04-10 09:43 | W.PM.OPN ---
Operative Note Operative Note Date of Service: 04/10/24 Narrative: Preoperative diagnosis: Right inguinal hernia, reducible Postoperative diagnosis: Same Procedure: Repair of right inguinal hernia with mesh Surgeon: Jason Bergman MD It Program Engagement Director: Chayito Pimentel PA-C Anesthesia: Mac Indications for procedure: 63-year-old male patient presenting following a fall off a ladder with a right inguinal hernia containing bladder. On examination he was found to have a reducible right inguinal hernia with some discomfort associated with the lump. Operative findings: Indirect right inguinal hernia containing bladder wall Specimen: None Estimated blood loss: 5 mL Complications: None Procedure details: Patient was brought to the OR and placed in a supine position. After administering MAC anesthesia the patient's abdomen was prepped with ChloraPrep and draped in a sterile fashion. A surgical time-out was called the consent confirmed. Patient received preoperative antibiotics and Venodyne boots were in place. Local anesthesia was then infiltrated over the right inguinal ligament. Incision was then made with a scalpel and carried out through subcutaneous tissue, past Terri's fashion up to the external oblique aponeurosis. Additional local was placed below the aponeurosis. This was then incised with a scalpel widened with the Metzenbaum scissors. The spermatic cord was noted to be thickened but was dissected free from the inguinal canal and retracted using a Ivanna drain. No direct hernia could be identified. Fibers of the cremaster muscle were then and a large indirect hernia identified. This was dissected free from the surrounding inguinal cord contents and then reduced into the abdominal cavity. A preperitoneal space was then created through the internal ring. A large extended PHS mesh was then obtained. The circular underlay was then deployed within the preperitoneal space. The overlay was then secured to the pubic tubercle, conjoined tendon, and shelving edge of the inguinal ligament using the 0 Polysorb suture. A slit was made in the mesh in the mesh wrapped around the spermatic cord at the internal ring. This was secured to the shelving edge using the 0 Polysorb suture. Wounds were then irrigated with saline solution and suctioned dry. External oblique aponeurosis was then closed using a running 2-0 Polysorb suture. Approximately 8 mL of Zenrelef was then instilled below the external oblique aponeurosis. Terri's fascia and dermis were then reapproximated using interrupted 3-0 Polysorb sutures. Skin was closed using a running subcuticular 4-0 Polysorb suture. Steri-Strips, 4 x 4 gauze and Tegaderm were then applied. The patient tolerated the procedure well. Sponge, instrument, and needle counts were reported as correct. The patient was transferred to PACU in stable condition.
[2024-04-10 09:50] VITALS: BP 127/68; PULSE 85; RESP 18; TEMP 36.2; O2SAT 98
[2024-04-10 10:05] VITALS: BP 139/88; PULSE 81; RESP 18; TEMP 36.4; O2SAT 96
== END 2024-04-10 11:01 | disposition home or self-care (01) ==
PROVIDERS: PCP Internal Medicine; Visit Provider Surgery
PROC: (CPT 49505; principal; 2024-04-10 09:40)
DX: K40.90 Unilateral inguinal hernia, without obstruction or gangrene, not specified as recurrent (principal); S22.43XA Multiple fractures of ribs, bilateral, initial encounter for closed fracture; W11.XXXA Fall on and from ladder, initial encounter; Y93.9 Activity, unspecified; Y92.9 Unspecified place or not applicable; Y99.9 Unspecified external cause status; C61 Malignant neoplasm of prostate; N52.35 Erectile dysfunction following radiation therapy; R35.0 Frequency of micturition; R03.0 Elevated blood-pressure reading, without diagnosis of hypertension; J45.909 Unspecified asthma, uncomplicated; Z79.51 Long term (current) use of inhaled steroids; Z79.899 Other long term (current) drug therapy; Z87.891 Personal history of nicotine dependence; Z98.890 Other specified postprocedural states
CPT/HCPCS: 49505; C1781; C9088; J0131; J0690; J1100; J1885; J2003; J2250; J2405; J2704; J2795; J3010

== ENCOUNTER → 2024-04-10 07:35 | Outpatient (BNV) | payer BC, SELFPAY | PROVIDERS: PCP Internal Medicine; Visit Provider Surgery | DX: K40.90 Unilateral inguinal hernia, without obstruction or gangrene, not specified as recurrent (principal) | CPT/HCPCS: 49505 ==

== ENCOUNTER → 2024-04-21 09:45 | Outpatient (BNVA) | payer BC, SELFPAY | PROVIDERS: PCP Internal Medicine; Visit Provider Surgery ==

== ENCOUNTER → 2024-04-21 09:45 | Outpatient (AMB) | payer BC, SELFPAY | END | disposition home or self-care (01) | PROVIDERS: PCP Internal Medicine; Visit Provider Surgery | CPT/HCPCS: 99024 ==

== ENCOUNTER 2024-05-11 08:43 | Outpatient (REF) | payer BC, SELFPAY | END 2024-05-11 08:44 | disposition home or self-care (01) | LOC: HO.LNP 08:43 | PROVIDERS: PCP Internal Medicine; Visit Provider Surgery | DX: L72.0 Epidermal cyst (principal) | CPT/HCPCS: 11442; 88304 ==

== ENCOUNTER 2024-05-11 08:43 | Outpatient (AMB) | payer BC, SELFPAY ==
[2024-05-11 08:53] VITALS: BP 155/86; PULSE 82; BMI 28.7
--- NOTE | 2024-05-11 08:53 | MHC.OFFVIS ---
Vital Signs 05/11/24 08:53 Height 6 ft Weight 212 lb BMI 28.7 BP 155/86 H Blood Pressure Location Rt brachial Position Sitting Pulse 82 Intake Visit Reasons: 4 wk follow up S/P RIH/excision cyst on forehead Intake Note: Patient is seen for office procedure, excision of sebaceous cyst of the frontal scalp & one month follow, post right inguinal hernia repair. Reports RIH incision healing well. Pt c/o: no concerns. Extruder Operator Vertical Required: No Accompanied by: Self / Same As Patient Allergies No Known Allergies [No Known Allergies*] Allergy (Verified 05/11/24 08:55) HPI Comments Details: 63-year-old male patient returning 1 month following repair of a right inguinal hernia with mesh. Reports feeling well with no ongoing abdominal symptoms. He denies nausea, vomiting, incisional pain, or bowel changes. He does report a forehead skin cyst and presents today for excision. [facility] Medical History Malignant neoplasm of prostate Asthma Erectile dysfunction following radiation therapy Elevated blood pressure reading Prostate cancer Surgical History Hx of right inguinal hernia repair (04/10/24) History of surgery Social History Alcohol intake: current Alcohol intake frequency: holidays/special occasions only Patient Tobacco Use Status: Former Tobacco user Physical Exam Vital Signs: Last Vital Signs Pulse 82 05/11/24 08:53 BP 155/86 H 05/11/24 08:53 BMI result Body Mass Index 28.7 HEENT Head images: 1. 1.5 cm epidermal inclusion cyst or Pilar cyst in the mid forehead with no evidence of infection GI Other: Incision in the right inguinal region is clean, dry, and intact. No hernia noted with Valsalva maneuvers. No evidence of wound infection. Extrem Other: No edema Office Procedures Excision Details: Preoperative diagnosis:Pilar cyst mid forehead Postoperative diagnosis: Same Procedure: Excision of Pilar cyst mid forehead Surgeon: Jason Bergman MD Director Of Marketing Communications: None Anesthesia: Lidocaine 1% with epinephrine Indications for procedure:Pilar cyst mid forehead 1.5 cm diameter Operative findings:Pilar cyst mid forehead 1.5 cm diameter Specimen:Pilar cyst mid forehead Estimated blood loss: 1 mL Complications: None Procedure details: Patient was brought to the procedure room and placed in a supine position. The patient confirmed the location of the cyst in the mid forehead. After assuring informed consent the skin was prepped with Betadine and draped in a sterile fashion. Local anesthesia was then infiltrated around the lesion. A transverse incision was made directly over the center of the lesion and carried out through subcutaneous tissue up to the cyst wall. Combination of sharp and blunt dissection was used to excise the entire cyst and cyst wall from the surrounding subcutaneous tissue. The lesion was passed off the table and sent to pathology for further examination. Hemostasis was assured using light pressure. Skin was then closed using interrupted 3-0 Polysorb sutures in a subcuticular fashion. Steri-Strips and sterile bandage were then applied. The patient tolerated the procedure well. He was discharged in stable condition. 82195-Ehnystqw face/ear/eyelid/nose/lip/mucous membrane 1.1cm-2cm Procedure code (CPT) selection complete Assessment & Plan Assessment & Plan (1) Pilar cyst of scalp: Code(s): L72.11 - Pilar cyst Category: Medical (2) Right inguinal hernia: Code(s): K40.90 - Unilateral inguinal hernia, without obstruction or gangrene, not specified as recurrent Category: Medical Plan 63-year-old male patient status post repair of a right inguinal hernia and excision of a Pilar cyst of the forehead. He tolerated both procedures very well. As he will be returning to work next week he wishes to avoid a postoperative visit for the Pilar cyst therefore dissolvable sutures were used in the closure. He is welcome to call for any problems for a follow-up examination. Orders: Orders Surgical Today L72.11 - Pilar cyst Coding Level of Care Code Procedure Only Diagnoses Pilar cyst of scalp L72.11 Right inguinal hernia K40.90 CPT Codes Face/Ear/Eyelid/Nose/Lip/Mucous Membrane - CPT: 33768-Gvkwlapp face/ear/eyelid/nose/lip/mucous membrane 1.1cm-2cm ([id number])
--- OUTSIDE RECORDS SUMMARY | 2024-05-11 09:15 | XMS_ITS | Continuity of Care Document ---
Author Organization [facility] Address [address] [place] [address] [address] [place] [address]- Care Team Providers Care Labels Molder Name Role Phone Timothy Deleon MD Primary Care Physician Encounter [facility] [place](s): 03/03/24 - 05/07/[address] [place], [place] [address] Attending Physician: Darrel Mckeon DO Encounter Type: Pre Office Visit Allergies, Adverse Reactions, Alerts No Known Medication Allergies Medications gabapentin 300 mg oral capsule 300 mg, By Mouth, 3 times a day, # 42 capsule, Refills 0, Tot. Refills 0, Maintenance, 02/19/24 11:05:00 AM EST, Route to Pharmacy Electronically, [facility]Bill [facility], Partial fill upon [...] Date: 02/18/24 Status: Ordered Repeat number: 1 Social History Social History Type Response Smoking Status Former smoker entered on: 01/24/15 Sex Sex Representation Male (finding) Patient Care team information Care Team Personnel Name: Timothy Deleon MD Position: [facility] Outreach Member Role: PCP Address: [address] [place] [address] [place] [address]- Telecom: Name: Iris Morejon RN Position: [facility] RN Member Role: Primary Care Nurse Care Team Related Persons Name: MILENA DOTY Insurance Providers Guarantor name: CESAR Health Plan Information #: 1 Payer: [employer] Member Number: [id number] Policy Number: NA Group Number: [id number] Health Plan Information #: 2 Payer: [employer] Member Number: [id number] Policy Number: NA Group Number: [id number]
--- OUTSIDE RECORDS SUMMARY | 2024-05-11 09:15 | XMS_ITS | Patient Health Record ---
Author Organization [facility] Address [address] [place] [address] Care Team Providers Care Script Developer Name Role Phone Timothy Deleon MD Primary Care Provider Terrence Rai Unavailable [phone] ALLERGIES No Known Allergies REASON FOR REFERRAL [...] malignant neoplasm of colon (Z12.11) Active confirmed 031210491 Problem History of adenomatous polyp of colon (Z86.010) Active confirmed 812860881 Problem Diverticulosis of large intestine without perforation or abscess without bleeding (K57.30) Active confirmed Diverticul ar disease of colon (127445170) Problem Encounter for screening for malignant neoplasm of rectum (Z12.12) Active confirmed Screening for malignant neoplasm of rectum (820514981) Problem Preprocedural examination (Z01.818) Active confirmed 427050183 Problem Family history of colon cancer (Z80.0) Active confirmed 473533204 Problem RUQ pain (R10.11) Active confirmed 3017 15346 PLAN OF TREATMENT Pending Test Test Name Order Date US ABD 04/22/2022 Pathology 06/03/2022 Future Test Test Name Order Date COLONOSCOPY 07/08/2016 COLONOSCOPY 04/22/2022 Insurance Providers Payer Name Payer Address Payer Phone Subscriber Number Group Number Insured Name Patient Relationship to Insured Coverage Start Date Coverage End Date [facility] [address] [place], [place] [id number] NELI KIM Self - patient is the insured MEDICAL (GENERAL) HISTORY Medical History History ICD Code Asthma Prostate psvldf-YZB-TqDr. Marquez, III ----06/2015 Denies AR,DM,CVA,renal disease-- Negative abdominal ultrasound in October of 2014 Screening colonoscopy in Sep with removal of 3 small tubular adenomas Surgical History Surgery Date(Month/Year)
--- OUTSIDE RECORDS SUMMARY | 2024-05-11 09:15 | XMS_ITS | Continuity of Care Document ---
Author Organization [facility] Address [address] [place] [address] [address] [place] [address]- Care Team Providers Care Wool Sacker Name Role Phone Timothy Deelon MD Primary Care Physician Encounter [facility] [place] Date(s): 04/07/24 - 05/07/[address] [place], [place] [address] Attending Physician: Rodrigo Lopez Admitting Physician: AdmRodrigo sanchez Referring Physician: Admtr [id number] Encounter Type: Triage Allergies, Adverse Reactions, Alerts No Known Medication Allergies Medications gabapentin 300 mg oral capsule 300 mg, By Mouth, 3 times a day, # 42 capsule, Refills 0, Tot. Refills 0, Maintenance, 02/19/24 11:05:00 AM EST, Route to Pharmacy Electronically, [facility], Partial fill upon patient [...] Team Personnel Name: Timothy Deleon MD Position: [facility] Outreach Member Role: PCP Address: [address] [place] [address] [place] [address]- Telecom: Name: Iris Morejon RN Position: [facility] RN Member Role: Primary Care Nurse Care Team Related Persons Name: MILENA DOTY Insurance Providers Guarantor name: [employer] Health Plan Information #: 1 Payer: [employer] Member Number: NA Policy Number: NA Group Number: [id number]
--- OUTSIDE RECORDS SUMMARY | 2024-05-11 09:15 | XMS_ITS | Patient Health Record ---
Author Organization [facility] Address [address] [place] [address] Care Team Providers Care Professor Of French Name Role Phone Timothy Deleon MD Primary Care Provider Marivel Crowe Unavailable [phone] Allergies No Known Allergies Reason For Referral [...] Problem Status W/U Status Risk Notes Problem 33715920 Plantar wart (B07.0) Active confirmed Plan Of Treatment No Information Insurance Providers Payer Name Payer Address Payer Phone Subscriber Number Group Number Insured Name Patient Relationship to Insured Coverage Start Date Coverage End Date [employer] [address] [place] [address] [id number] Jose Carlos Catherine Self - patient is the insured Medical (General) History Medical History History ICD Code asthma Surgical History Surgery Date(Month/Year)
== END 2024-05-11 09:14 | disposition home or self-care (01) ==
PROVIDERS: PCP Internal Medicine; Visit Provider Surgery
DX: L72.0 Epidermal cyst (principal)
CPT/HCPCS: 11442

== ENCOUNTER 2024-10-04 08:23 | Outpatient (AMB) | payer BC, SELFPAY ==
--- NOTE | 2024-10-04 08:23 | MHC.PC.OV ---
Vital Signs 10/04/24 08:29 Height 6 ft Weight 218 lb BMI 29.6 BP 152/88 H Blood Pressure Location Lt brachial Position Sitting Respiration 16 Pulse 90 Pulse Source Pulse Oximeter Temp 98.3 F Temp Source Temporal Artery Scan Pulse Oximetry (%) 99 Oxygen Delivery Method Room Air Intake Visit Reasons: Routine-Croke Day Treatment Clinician/Art Therapist Required: No Accompanied by: Self / Same As Patient Allergies No Known Allergies (No Known Allergies*) Allergy (Verified 10/04/24 08:42) Medication List - Last Reconciled 10/04/24 by Osiel Beck MD fluticasone propion-salmeterol 500-50 mcg/dose (Advair Diskus) 1 ea PO BID Tobacco use date assessed: 10/04/24 [facility] Medical History Malignant neoplasm of prostate Asthma Erectile dysfunction following radiation therapy Elevated blood pressure reading Prostate cancer Surgical History History of colonoscopy (~06/03/22) Hx of right inguinal hernia repair (04/10/24) History of surgery Social History Alcohol intake: current Alcohol intake frequency: holidays/special occasions only Patient Tobacco Use Status: Former Tobacco user e-Cigarette/Vaping Use: Never Used Questionnaire AUDIT C Alcohol Use Questionnaire (AUDIT-C) 1. How often do you have a drink containing alcohol?: 4 or more times a week 2. How many drinks containing alcohol do you have on a typical day when you are drinking?: 3 or 4 Total Score: 5 Physical exam (Primary Care) Vital Signs: Last Vital Signs Temp 98.3 F 10/04/24 08:29 Pulse 90 10/04/24 08:29 Resp 16 10/04/24 08:29 BP 152/88 H 10/04/24 08:29 Pulse Ox 99 10/04/24 08:29 Oxygen Delivery Method Room Air 10/04/24 08:29 BMI result Body Mass Index 29.6 Tobacco/Smoking Status: Tobacco use Status Tobacco use date assessed 10/04/24 10/04/24 08:27 Patient Tobacco Use Status Former Tobacco user 10/04/24 08:27 e-Cigarette/Vaping Use Never Used 10/04/24 08:27 Coding Level of Care Code New Pt Level 4 (91797) Complex EM visit Add On G2211 Diagnoses Malignant neoplasm of prostate C61 Elevated blood pressure reading R03.0 Assessment & Plan Assessment & Plan (1) Malignant neoplasm of prostate: Comment: 10/2015 external beam radiation 6 months GnRH intermediate risk Code(s): C61 - Malignant neoplasm of prostate Category: Medical Plan: PSA will be drawn, will call with results (2) Elevated blood pressure reading: Code(s): R03.0 - Elevated blood-pressure reading, without diagnosis of hypertension Category: Medical Plan: Patient wishes to check his blood pressure at home for a few readings. Encouraged to decrease alcohol intake Plan History of Present Illness - The patient is a 64-year-old male presenting with a wellness check-up and concerns about easy bruising and prolonged bleeding from minor cuts. - Easy bruising and prolonged bleeding: The patient reports that minor bumps result in significant bruising and small cuts bleed excessively. - Preventative care: The patient is up to date on colonoscopy screenings and undergoes fasting blood work twice a year, with the last results in February being normal. 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 - Substance use: Denies smoking, tobacco use, and drug use. Consumes beer occasionally. Review of Systems - Hematologic: Reports easy bruising and prolonged bleeding from minor cuts. - Gastrointestinal: Denies any pain in the tongue. Physical Exam General: Cooperative and healthy appearing Nutritional Appearance: Well nourished Orientation/consciousness: Patient oriented x3 Limitations: No limitations Head: Normal to inspection General: Appearance normal, both eyes and all related structures Neck: Normal visual inspection Chest: Normal palpation of entire chest wall Respiratory: Normal respiratory effort Neurology: Patient oriented x3 Results Plan 1. Easy Bruising And Prolonged Bleeding - Plan to check blood work to investigate the cause of easy bruising and prolonged bleeding. 2. Preventative Care - The patient is up to date on colonoscopy screenings and will continue with biannual fasting blood work. Discussion Notes I discussed with the patient the importance of continuing regular screenings and blood work to monitor his health status. We agreed to check his blood work to investigate the cause of easy bruising and prolonged bleeding. I also confirmed that his colonoscopy is up to date. Patient Instructions - Continue with regular colonoscopy screenings as scheduled. - Complete the fasting blood work as planned. - Monitor for any changes in bruising or bleeding and report if symptoms worsen. Orders: Orders Basic Metabolic Panel Today C61 - Malignant neoplasm of prostate Liver Panel Today C61 - Malignant neoplasm of prostate Complete Blood Count no Diff Today C61 - Malignant neoplasm of prostate Lipid Panel Today C61 - Malignant neoplasm of prostate PSA,Total (Free>4and<10) Today C61 - Malignant neoplasm of prostate
[2024-10-04 08:29] VITALS: BP 152/88; PULSE 90; RESP 16; TEMP 36.8; O2SAT 99; BMI 29.6
--- OUTSIDE RECORDS SUMMARY | 2024-10-04 08:36 | XMS_ITS | Patient Health Record ---
Author Organization [facility] Address [address] [place] [address] Care Team Providers Care Rod And Tube Straightener Name Role Phone Adrienne (RETIRED) Timothy ALMANZA Primary Care Provide r Unavailable Terrence Le Unavailable [phone] Allergies No Known Allergies Reason For Referral No Information Medications Medication SIG (Take, Route, Frequency, Duration) Notes Start Date End Date Status Advair Diskus 250-50 MCG/DOSE 1 puff Inhalation Twice a day Active Immunizations Vaccine Route Administration Date Status Comme nts Influenza Unknown 12/13/2021 Administered Problems Problem Type SNOMED Code ICD Code Onset Dates Problem Status W/U Status Risk Notes Problem 838003246 Encounter for screening for malignant neoplasm of colon (Z12.11) Active confirmed Problem 734874352 History of adenomatous polyp of colon (Z86.010) Active confirmed Problem Diverticular disease of colon (863287974) Diverticulosis of large intestine without perforation or abscess without bleeding (K57.30) Active confirmed Problem Screening for malignant neoplasm of rectum (743746234) Encounter for screening for malignant neoplasm of rectum (Z12.12) Active confirmed Problem 202423932 Preprocedural examination (Z01.818) Active confirmed Problem 743516246 Family history o f colon cancer (Z80.0) Active confirmed Problem 264431565 RUQ pain (R10.11) Active confirmed Plan Of Treatment Pending Test Test Name Order Date US ABD 04/22/2022 Pathology 06/03/2022 Future Test Test Name Order Date COLONOSCOPY 07/08/2016 COLONOSCOPY 04/22/2022 Insurance Providers Payer Name Payer Address Payer Phone Subscriber Number Group Number Insured Name Patient Relationship to Insured Coverage Start Date Coverage End Date [facility] [address] [place], [place] [id number] NELI KIM Self - patient is the insured Medical (General) History Medical History History ICD Code Asthma Prostate sgqaib-GEN-RzDr. Marquez, III ----06/2015 Denies NE,DM,CVA,renal disease-- Negative abdominal ultrasound in October of 2014 Screening colonoscopy in Sep with removal of 3 small tubular adenomas Surgical History Surgery Date(Month/Year)
--- OUTSIDE RECORDS SUMMARY | 2024-10-04 08:36 | XMS_ITS | Patient Health Record ---
Author Organization [facility] Address [address] [place] [address] Care Team Providers Care Boat Designer Name Role Phone Timothy Deleon MD Primary Care Provider Marivel Crowe Unavailable [phone] Allergies No Known Allergies Reason For Referral [...] Problem Status W/U Status Risk Notes Problem Plantar wart (29380779) Plantar wart (B07.0) Active confirmed Plan Of Treatment No Information Insurance Providers Payer Name Payer Address Payer Phone Subscriber Number Group Number Insured Name Patient Relationship to Insured Coverage Start Date Coverage End Date [employer] [address] [place] [address] [phone] [id number] Jose Carlos Catherine Self - patient is the insured Medical (General) History Medical History History ICD Code asthma Surgical History Surgery Date(Month/Year)
== END 2024-10-04 08:43 | disposition home or self-care (01) ==
LOC: HO.HMCHD 08:24
PROVIDERS: PCP Internal Medicine; Visit Provider Internal Medicine
DX: C61 Malignant neoplasm of prostate (principal); R03.0 Elevated blood-pressure reading, without diagnosis of hypertension

== ENCOUNTER 2024-11-18 10:16 | Outpatient (REF) | payer BC, SELFPAY ==
--- OUTSIDE RECORDS SUMMARY | 2024-11-18 10:18 | XMS_ITS | Patient Health Record ---
Author Organization [facility] Address [address] [place] [address] Care Team Providers Care Character Actress Name Role Phone Adrienne (RETIRED) Timothy ALMANZA Primary Care Provide r Unavailable Terrence Le Unavailable [phone] Allergies No Known Allergies Reason For Referral No Information Medications Medication SIG (Take, Route, Frequency, Duration) Notes Start Date End Date Status Advair Diskus 250-50 MCG/DOSE 1 puff Inhalation Twice a day Active Immunizations Vaccine Route Administration Date Status Comme nts Influenza Unknown 12/13/2021 Administered Problems Problem Type SNOMED Code ICD Code Onset Dates Problem Status W/U Status Risk Notes Problem 738767597 Encounter for screening for malignant neoplasm of colon (Z12.11) Active confirmed Problem 868056219 History of adenomatous polyp of colon (Z86.010) Active confirmed Problem Diverticular disease of colon (558484254) Diverticulosis of large intestine without perforation or abscess without bleeding (K57.30) Active confirmed Problem Screening for malignant neoplasm of rectum (454975831) Encounter for screening for malignant neoplasm of rectum (Z12.12) Active confirmed Problem 872897843 Preprocedural examination (Z01.818) Active confirmed Problem 759869011 Family history o f colon cancer (Z80.0) Active confirmed Problem 952334090 RUQ pain (R10.11) Active confirmed Plan Of Treatment Pending Test Test Name Order Date US ABD 04/22/2022 Pathology 06/03/2022 Future Test Test Name Order Date COLONOSCOPY 07/08/2016 COLONOSCOPY 04/22/2022 Insurance Providers Payer Name Payer Address Payer Phone Subscriber Number Group Number Insured Name Patient Relationship to Insured Coverage Start Date Coverage End Date [facility] [address] [place], [place] [id number] NELI KIM Self - patient is the insured Medical (General) History Medical History History ICD Code Asthma Prostate ledtlx-BOY-HuDr. Marquez, III ----06/2015 Denies NE,DM,CVA,renal disease-- Negative abdominal ultrasound in October of 2014 Screening colonoscopy in Sep with removal of 3 small tubular adenomas Surgical History Surgery Date(Month/Year)
--- OUTSIDE RECORDS SUMMARY | 2024-11-18 10:18 | XMS_ITS | Patient Health Record ---
Author Organization [facility] Address [address] [place] [address] Care Team Providers Care Sheet Metal Production Worker Name Role Phone Timothy Deleon MD Primary Care Provider Marivel Crowe Unavailable [phone] Allergies No Known Allergies Reason For Referral [...] W/U Status Risk Notes Problem Plantar wart (96597316) Plantar wart (B07.0) Active confirmed Plan Of Treatment No Information Insurance Providers Payer Name Payer Address Payer Phone Subscriber Number Group Number Insured Name Patient Relationship to Insured Coverage Start Date Coverage End Date [facility] All Others [address] [place] [address] [phone] [id number] Jose Carlos Catherine Self - patient is the insured Medical (General) History Medical History History ICD Code asthma Surgical History Surgery Date(Month/Year)
[2024-11-18 11:24] LABS: Hematocrit 42.0 % (42.0-52.0); Hemoglobin 14.3 g/dl (14.0-18.0); Mean Corpuscular HGB Conc 34.0 g/dl (31.0-36.0); Mean Corpuscular Hemoglobin 31.0 pg (27.0-33.0); Mean Corpuscular Volume 90.9 fL (80.0-98.0); NRBC Abs Auto 0.000 X10*3/uL (0.0-0.012); NRBC Pct Auto 0.0 /100WBC (0.0-0.2); Platelet Count 317 X10*3/uL (160-400); Red Blood Count 4.62 X10*6/uL (4.60-5.80); White Blood Count 6.8 X10*3/uL (4.8-10.8)
[2024-11-18 12:03] LABS: Alanine Aminotransferase 26 U/L (0-40); Albumin Level 4.3 g/dL (3.5-5.0); Alkaline Phosphatase 108 U/L (39-117); Anion Gap 13 (12-20); Aspartate Amino Transferase 21 U/L (5-37); Blood Urea Nitrogen 20 mg/dL (9-16); Calcium 9.2 mg/dL (8.4-10.2); Carbon Dioxide 27 mmol/L (22-29); Chloride 108 mmol/L (96-108); Cholesterol 161 mg/dL (<200); Estimated Glomerular Filt Rate > 60; HDL Cholesterol 49 mg/dL (>40); Potassium 4.6 mmol/L (3.3-5.1); Sodium 143 mmol/L (135-145); Total Protein 7.3 g/dL (6.5-8.0); Triglycerides 121 mg/dL (<150)
[2024-11-18 12:41] LABS: Prostate Specific Antigen 0.20 ng/mL (<0.05-4.0)
== END 2024-11-18 10:17 | disposition home or self-care (01) ==
LOC: HO.LAB 10:16
PROVIDERS: PCP Internal Medicine; Visit Provider Urology
DX: C61 Malignant neoplasm of prostate (principal); N52.9 Male erectile dysfunction, unspecified; Z12.5 Encounter for screening for malignant neoplasm of prostate
CPT/HCPCS: 36415; 80048; 80061; 80076; 84153; 85027

== ENCOUNTER 2024-11-28 15:49 | Outpatient (AMB) | payer BC, SELFPAY ==
--- NOTE | 2024-11-28 15:53 | A.OFFVIS_ITS ---
Intake Visit Reasons: follow up (last seen Mar) Intake Note: Patient is Present for Follow Up Urology Medication: Tadalafil Antibiotic Allergies: None Blood Thinners: None Labs done 11/18/24 PSA : 0.20 Button Attaching Machine Operator Required: No Accompanied by: Self / Same As Patient Allergies No Known Allergies (No Known Allergies*) Allergy (Verified 11/28/24 15:54) HPI Comments Details: Jose Carlos is a pleasant male. He is a patient of Dr. Deleon. He is seen for the following urologic condition - prostate cancer - erectile dysfunction Follow-up on tadalafil 10 mg daily Minimal benefit with erectile dysfunction Has had stabilization of bladder Discussed other ED treatments including vacuum pump, injectable therapy, penile prosthetic He will consider PSA well-controlled Continue 5 mg tadalafil for bladder stability Prostate Cancer 2015 external beam radiation Prostate cancer diagnosed by Dr. Marquez Intermediate risk prostate cancer Initial therapy short-term GnRH with external beam radiation Completed with [facility] PSA 06/01 0.26, 01/01 0.3, 01/02 0.27, 07/04 0.3, 07/05 0.3, 12/07 0.2 Yearly surveillance [facility] Medical History (Updated 10/04/24 @ 08:46 by Osiel Beck MD) Malignant neoplasm of prostate Asthma Erectile dysfunction following radiation therapy Elevated blood pressure reading Prostate cancer Surgical History History of colonoscopy (~06/03/22) Hx of right inguinal hernia repair (04/10/24) History of surgery Social History Alcohol intake: current Alcohol intake frequency: holidays/special occasions only Patient Tobacco Use Status: Former Tobacco user e-Cigarette/Vaping Use: Never Used Review of Systems Const Denies chills and Denies fever(s) Card Reports no additional complaints and Denies syncope Resp Denies cough GI Denies abdominal pain and Denies heartburn Reports as per HPI and Denies change in libido Neuro Denies syncope Psych Denies change in libido Endo Denies change in libido Physical Exam Const General: cooperative, healthy appearing, comfortable and no acute distress Orientation/consciousness: patient oriented x3 HEENT Face and sinus: Yes normal facial exam Mouth: moist mucous membranes Neck Neck: Yes normal visual inspection, Yes full ROM and Yes trachea midline Chest Chest palpation & inspection: normal inspection of the chest Resp Effort & Inspection: normal respiratory effort, able to speak in complete sentences and no respiratory distress GI Inspection: Yes normal to inspection Back/Spine/Pelvis Cervical Spine: normal cervical lordosis Thoracic/Lumbar Spine: thoracic and lumbar spine normal to inspection Skin General skin exam: no rashes or lesions noted Neuro General: patient oriented x3, gait normal, tone normal and moves all extremities Extrem General: Yes normal to inspection and Yes capillary refill normal Assessment & Plan Assessment & Plan (1) Malignant neoplasm of prostate: Comment: 10/2015 external beam radiation 6 months GnRH intermediate risk Code(s): C61 - Malignant neoplasm of prostate Category: Medical (2) Erectile dysfunction: Code(s): N52.9 - Male erectile dysfunction, unspecified Category: Medical Plan 12 month follow-up PSA Orders: Orders Prostate Specific Antigen 12 Months C61 - Malignant neoplasm of prostate Prostate Specific Antigen 11/18/24 N52.9 - Male erectile dysfunction, unspecified Patient Instructions: This note is constructed using voice recognition software. While every effort has been made to ensure accuracy director employee communications errors may have been included. Imaging studies, laboratory and physical exam results were discussed and reviewed in detail. No major barriers to patient understanding were identified. An opportunity to ask questions regarding the treatment plan was provided. All questions were answered. The patient expressed understanding and agreement with the above treatment plan. The patient is aware they should contact our office by phone for worsening of their current condition or the appearance of new urologic symptoms. Compliance is encouraged with any medications and followup testing that is ordered. It is a privilege to participate in the urologic care of your patient. If you have any questions or concerns regarding treatment for the above conditions, or other urologic issues, please do not hesitate to contact me. The office telephone contact is [phone]. Sincerely, Dr Dieudonne Sandra MD, [facility] Compassionate Specialist Care for the Genitourinary System Coding Level of Care Code Est Pt Level 4 (27880) Complex EM visit Add On G2211 Diagnoses Malignant neoplasm of prostate C61 Erectile dysfunction N52.9
--- OUTSIDE RECORDS SUMMARY | 2024-11-28 18:57 | XMS_ITS | Patient Health Record ---
Author Organization [facility] Address [address] [place] [address] Care Team Providers Care Metal Stud Framer Name Role Phone Timothy Deleon MD Primary Care Provider Marivel Crowe Unavailable [phone] Allergies No Known Allergies Reason For Referral [...] W/U Status Risk Notes Problem Plantar wart (02983615) Plantar wart (B07.0) Active confirmed Plan Of Treatment No Information Insurance Providers Payer Name Payer Address Payer Phone Subscriber Number Group Number Insured Name Patient Relationship to Insured Coverage Start Date Coverage End Date [facility] All Others [address] [place] [address] [phone] [id number] Jose Carlos Catherine Self - patient is the insured Medical (General) History Medical History History ICD Code asthma Surgical History Surgery Date(Month/Year)
--- OUTSIDE RECORDS SUMMARY | 2024-11-28 18:57 | XMS_ITS | Patient Health Record ---
Author Organization [facility] Address [address] [place] [address] Care Team Providers Care Negative Developer Name Role Phone Adrienne (RETIRED) Timothy ALMANZA Primary Care Provide r Unavailable Terrence Le Unavailable [phone] Allergies No Known Allergies Reason For Referral No Information Medications Medication SIG (Take, Route, Frequency, Duration) Notes Start Date End Date Status Advair Diskus 250-50 MCG/DOSE 1 puff Inhalation Twice a day Active Immunizations Vaccine Route Administration Date Status Comme nts Influenza Unknown 12/13/2021 Administered Problems Problem Type SNOMED Code ICD Code Onset Dates Problem Status W/U Status Risk Notes Problem 842461235 Encounter for screening for malignant neoplasm of colon (Z12.11) Active confirmed Problem 614363156 History of adenomatous polyp of colon (Z86.010) Active confirmed Problem Diverticular disease of colon (012140280) Diverticulosis of large intestine without perforation or abscess without bleeding (K57.30) Active confirmed Problem Screening for malignant neoplasm of rectum (486144228) Encounter for screening for malignant neoplasm of rectum (Z12.12) Active confirmed Problem 386930141 Preprocedural examination (Z01.818) Active confirmed Problem 910852628 Family history o f colon cancer (Z80.0) Active confirmed Problem 936794055 RUQ pain (R10.11) Active confirmed Plan Of Treatment Pending Test Test Name Order Date US ABD 04/22/2022 Pathology 06/03/2022 Future Test Test Name Order Date COLONOSCOPY 07/08/2016 COLONOSCOPY 04/22/2022 Insurance Providers Payer Name Payer Address Payer Phone Subscriber Number Group Number Insured Name Patient Relationship to Insured Coverage Start Date Coverage End Date [facility] [address] [place], [place] [id number] NELI KIM Self - patient is the insured Medical (General) History Medical History History ICD Code Asthma Prostate elinpy-SEF-FzDr. Marquez, III ----06/2015 Denies [place],DM,CVA,renal disease-- Negative abdominal ultrasound in October of 2014 Screening colonoscopy in Sep with removal of 3 small tubular adenomas Surgical History Surgery Date(Month/Year)
== END 2024-11-28 16:11 | disposition home or self-care (01) ==
LOC: HO.HUSH 15:50
PROVIDERS: PCP Internal Medicine; Visit Provider Urology
DX: C61 Malignant neoplasm of prostate (principal); N52.9 Male erectile dysfunction, unspecified
CPT/HCPCS: 99214